=== PATIENT | female | born 1960 | race Caucasian/White ===

== ENCOUNTER 2017-03-30 12:38 | Emergency (ER) | payer OTHER ==
[~2017-03-30] VITALS: Ht 167.6 cm; Wt 79.4 kg
--- NOTE | 2017-03-30 13:19 | ED Upper Extremity ---
General Chief Complaint: Trauma-Non Activation Stated Complaint: FALL/RIGHT WRIST INJ Nursing Triage Note: pt states she was walking around her car in her work parking lot and fell on a ramp and hit her right wrist. no LOC stated. pts arm and wrist is red no lacerations or bruising at this time. pt states no other injuries or complains at this time. Nursing Sepsis Screen: No Definite Risk Source: patient Exam Limitations: no limitations History of Present Illness Time seen by provider: 13:18 Initial Comments To ER with a complaint of pain to the right wrist. This began this morning when she was walking around her car and tripped and fell attending to catch herself on an outstretched right arm. There is deformity to the distal right forearm. No other injuries and she did not hit her head. Onset: just prior to arrival Severity: moderate Pain/Injury Location: right forearm, right wrist Method of Injury: fell Modifying Factors: Worse With Movement Allergies and Home Medications Allergies Coded Allergies: No Known Drug Allergies (Unverified , 03/30/17) Home Medications Hydrocodone/Acetaminophen 1 Each Tablet, 1 EACH PO Q4H PRN for PAIN-MODERATE TO SEVERE, #20 Prescribed by: LAURA BEACH on 03/30/17 4018 Constitutional: see HPI EENTM: see HPI Respiratory: no symptoms reported Cardiovascular: no symptoms reported Genitourinary: no symptoms reported Musculoskeletal: see HPI Skin: no symptoms reported Psychiatric/Neurological: No Symptoms Reported Past Nmkkver-Fimggb-Mthmpm Hx Patient Social History Alcohol Use: Denies Use Recreational Drug Use: No Smoking Status: Never a Smoker 2nd Hand Smoke Exposure: No Recent Foreign Travel: No Contact w/Someone Who Travel: No Recent Infectious Disease Expo: No Seasonal Allergies Seasonal Allergies: Yes Physical Exam Vital Signs Vital Sign - Last 12Hours 03/30/17 12:51 Temp 98.3 Pulse 65 Resp 20 B/P (MAP) 128/70 Pulse Ox 96 O2 Delivery Room Air Capillary Refill : Less Than 3 Seconds General Appearance: WD/WN, no apparent distress HEENT: PERRL/EOMI, normal ENT inspection Neck: non-tender, full range of motion Respiratory: no respiratory distress, no accessory muscle use Gastrointestinal: normal bowel sounds, non tender, soft Shoulder: normal inspection, non-tender Elbow/Forearm: normal inspection, non-tender, Right Wrist: Yes deformity, Yes pain, Yes soft tissue tenderness, Yes swelling Hand: normal inspection, non-tender, Right Neurologic/Psychiatric: alert, normal mood/affect, oriented x 3 Skin: normal color, warm/dry Comments Hematoma block to the dorsal and volar side of the right wrist using a total of 8 mL of 2 percent lidocaine. After waiting 10 minutes reduction was attempted by hyperextending the wrist in an attempt to re-create injury, distal traction and volar pressure applied dorsally. We did make some progress, sure if it was sufficient. We will obtain an x-ray. Progress/Results/Core Measures Results/Orders My Orders Orders - LAURA BEACH APRN Forearm, Right, 2 Views (03/30/17 13:17) Hydrocodone/Apap 5/325 Tablet (Lortab 5 (03/30/17 13:30) Sling (03/30/17 13:17) Wrist, Right, 3 Views Or More (03/30/17 13:41) Lidocaine 2% Injection 20 Ml (Xylocaine (03/30/17 14:00) Wrist, Right, 3 Views Or More (03/30/17 14:18) Medications Given in ED Current Medications Medications Dose Ordered Sig/Frannie Route Start Time Stop Time Status Last Admin Dose Admin Acetaminophen/ Hydrocodone Bitart 1 tab ONCE ONCE PO 03/30/17 13:30 03/30/17 13:31 DC 03/30/17 13:47 1 TAB Lidocaine HCl 20 ml ONCE ONCE INJ 03/30/17 14:00 03/30/17 14:01 DC 03/30/17 14:11 20 ML Vital Signs/I&O Vital Sign - Last 12Hours 03/30/17 12:51 Temp 98.3 Pulse 65 Resp 20 B/P (MAP) 128/70 Pulse Ox 96 O2 Delivery Room Air Blood Pressure Mean: 89 Diagnostic Imaging Diagonstic Imaging: Xray Comments NAME: CORRIE KAHN [facility] REC#: [id number] PT STATUS: REG ER : 1960 PHYSICIAN: LAURA BEACH APRN ADMIT DATE: 03/30/17/ER Draft Date of Exam:03/30/17 FOREARM, RIGHT, 2 VIEWS INDICATION: Right wrist pain after fall. DISCUSSION: Two views of the right forearm were obtained, no comparison. Acute impacted fractures of the distal right radius and ulna with likely intra-articular extension. The distal fragments are displaced posteriorly. Please see dedicated wrist films for further detail. No other osseous abnormality identified. Limited views of the right elbow are unremarkable. No radiopaque foreign body. IMPRESSION: 1. Acute impacted angulated fractures of the distal right radius and ulna. Dictated on workstation # [id number] Dict: 03/30/17 1353 Trans: 03/30/17 1355 [facility] [id number] Interpreted by: HILDA BECKER MD Electronically signed by: Departure Communication Progress Notes 1456- I sent the images to Dr. Prather who is on-call for orthopedics. He will see the patient tomorrow morning at 1030 a.m. Recommend splinting in this position in the interim. 1505-Pt placed in sugar tong splint. Impression Impression: Primary Impression: Wrist fracture Disposition: 01 HOME, SELF-CARE Condition: Stable Departure-Patient Inst. Decision time for Depature: 14:56 Referrals: NO,LOCAL PHYSICIAN (PCP) Primary Care Physician MEENAKSHI PRATHER MD Patient Instructions: Wrist Fracture (DC) Add. Discharge Instructions: 1. Do not eat breakfast in the morning 2. Your scheduled to see Dr. Prather tomorrow at 1030 a.m. at his [place] office 2. Keep the arm elevated, keep the splint on at all times, ice pack for one hour every 2 hours and pain medication as directed All discharge instructions reviewed with patient and/or family. Voiced understanding. Scripts Hydrocodone/Acetaminophen (Yaphank 5-325 Tablet) 1 Each Tablet 1 EACH PO Q4H Y for PAIN-MODERATE TO SEVERE, #20 TAB Prov: LAURA BEACH PAINT SPECIALIST 03/30/17 LAURA BEACH APRN March 30, 2017 13:18
[2017-03-30] MEDS ORDERED: HYDROcodone/APAP 5 MG/325 MG (LORTAB) TAB PO ONE (13:30)
--- NOTE | 2017-03-30 13:56 | Diagnostic Imaging Report ---
INDICATION: Right wrist pain after fall. DISCUSSION: Two views of the right forearm were obtained, no comparison. Acute impacted fractures of the distal right radius and ulna with likely intra-articular extension. The distal fragments are displaced posteriorly. Please see dedicated wrist films for further detail. No other osseous abnormality identified. Limited views of the right elbow are unremarkable. No radiopaque foreign body. IMPRESSION: 1. Acute impacted angulated fractures of the distal right radius and ulna. Dictated by: Dictated on workstation # [id number]
--- NOTE | 2017-03-30 13:57 | Diagnostic Imaging Report ---
3 views of the right chest. INDICATION: Fall. FINDINGS: There is an angulated fracture projecting dorsally at the level of the distal metaphysis of the radius. There is also a minimally displaced fracture of the ulna. There is suggestion of intra-articular extension of the fracture line with impaction along the dorsal aspect. There is no subluxation or dislocation suggested at the joint itself. No radiopaque foreign body. IMPRESSION: Impacted angulated fractures of the distal radius and ulna with suggestion of intra-articular extension of the fracture line. Dictated by: Dictated on workstation # [id number]
[2017-03-30] MEDS ORDERED: LIDOCAINE 2% 20 ML (XYLOCAINE) VIAL INJ ONE (14:00)
--- NOTE | 2017-03-30 14:42 | Diagnostic Imaging Report ---
INDICATION: Followup right wrist fracture. DISCUSSION: Three views of the right wrist were obtained following reduction with comparison from earlier today. Mildly impacted comminuted fractures of the distal right radius and ulna are again noted. Posterior angulation of the distal radial fragments of at least 45 degrees has not significantly changed from the previous exam. Intra-articular extension of the fracture line is noted. No other fracture identified. Soft tissue swelling is present. IMPRESSION: 1. Dorsal angulation of the comminuted intra-articular impacted fracture involving the distal right radius shows no significant interval change in overall angulation. Comminuted fracture of the distal right ulna is also stable. Dictated by: Dictated on workstation # [id number]
[2017-03-30] MEDS ORDERED: HYDR-757 PO (14:58)
[2017-03-30 15:23] VITALS: BP 145/83
== END 2017-03-30 15:23 | disposition home or self-care (01) ==
LOC: ER 12:42
DX: S52.251A Displaced comminuted fracture of shaft of ulna, right arm, initial encounter for closed fracture (principal); S52.351A Displaced comminuted fracture of shaft of radius, right arm, initial encounter for closed fracture; W01.0XXA Fall on same level from slipping, tripping and stumbling without subsequent striking against object, initial encounter; Y92.481 Parking lot as the place of occurrence of the external cause; Y99.8 Other external cause status
CPT/HCPCS: 29125; 73090; 73110

== ENCOUNTER → 2017-06-25 | Outpatient (CLI) | payer BC ==
[~2017-06-25] MED LIST: HYDR-757 PO
--- NOTE | 2017-06-25 11:34 | Diagnostic Imaging Report ---
PROCEDURE: CT right lower extremity without contrast. TECHNIQUE: Axially acquired CT was obtained through the right lower extremity without intravenous contrast. Coronal and sagittal reformations were also performed. INDICATION: Knee pain after injury approximately one week ago. COMPARISON: None available. FINDINGS: There is a mildly impacted fracture of the lateral tibial plateau with approximately 2 mm articular surface depression. This is located along the periphery of the lateral tibial plateau. No fracture of the medial tibial plateau or within the tibial eminence. Distal femur is intact. There is a small knee joint effusion without significant lipohemarthrosis. No mineralized intra-articular bodies. The ACL and PCL appear intact. IMPRESSION: 1. There is a focal mild impaction fracture of the peripheral aspect of the lateral tibial plateau which is likely acute to subacute in nature per patient's history. There is less than 2 mm articular surface step-off/depression. Clinical correlation for lateral joint line pain is advised. 2. Small knee joint effusion. If there is concern for internal derangement, consider MRI for further evaluation. Dictated by: Dictated on workstation # [id number]
== END ==
LOC: RAD 09:14
DX: S82.141A Displaced bicondylar fracture of right tibia, initial encounter for closed fracture (principal); X58.XXXA Exposure to other specified factors, initial encounter; Y99.8 Other external cause status
CPT/HCPCS: 73700

== ENCOUNTER → 2019-10-02 | Outpatient (REF) ==
[~2019-10-02] MED LIST changes: +HYDR-4226 PO; -HYDR-757 PO
--- NOTE | 2019-10-02 10:19 | Diagnostic Imaging Report ---
INDICATION: Injury to left knee. AP, oblique, and lateral views of the left knee are obtained. No fracture or acute bony abnormality is seen. Joint spaces appear preserved. IMPRESSION: Negative left knee. Dictated by: Dictated on workstation # [id number]
== END ==
LOC: EDBD → OCC 09:57 → MERGE 09:57
PROVIDERS: ATTEND Family Medicine
DX: S89.92XA Unspecified injury of left lower leg, initial encounter (principal)
CPT/HCPCS: 73562

== ENCOUNTER 2021-05-30 10:34 | Inpatient (IN) | payer BC ==
[~2021-05-30] VITALS: Ht 168 cm; Wt 83.5 kg
--- NOTE | 2021-05-30 11:43 | ED Cough/URI ---
General Chief Complaint: Cough/Cold/Flu Symptoms Stated Complaint: SOB,COUGH,CONGESTION Nursing Triage Note: PT STATES COUGHING FOR OVER A WEEK. FEVER EARLY ON BUT NONE FOR THE LAST COUPLE DAYS. Source: patient Exam Limitations: no limitations History of Present Illness Date Seen by Provider: May 30, 2021 Time Seen by Provider: 11:20 Initial Comments Shortness of breath and coughing x1 week. Non-smoker, no comorbidities that she is aware of, no diabetes no pre-existing lung disease. No autoimmune diseases. Unvaccinated against Covid. SpO2 87% on room air on arrival. Timing/Duration: getting worse Severity/Quality: productive cough Prior Episodes/Possible Cause: no prior episodes Associated Symptoms: cough, fever/chills, muscle aches, shortness of breath Allergies and Home Medications Allergies Coded Allergies: No Known Drug Allergies (Unverified , 03/30/17) Home Medications Hydrocodone/Acetaminophen 1 Each Tablet, 1 EACH PO Q4H PRN for PAIN-MODERATE TO SEVERE Prescribed by: LAURA BEACH on 03/30/17 1716 Patient Home Medication List Home Medication List Reviewed: Yes Review of Systems Review of Systems Constitutional: see HPI EENTM: see HPI Respiratory: no symptoms reported Cardiovascular: no symptoms reported Gastrointestinal: nausea Genitourinary: no symptoms reported Musculoskeletal: no symptoms reported Skin: no symptoms reported Psychiatric/Neurological: No Symptoms Reported Hematologic/Lymphatic: No Symptoms Reported Immunological/Allergic: no symptoms reported Past Gzpxtgz-Geifqy-Zakohj Hx Seasonal Allergies Seasonal Allergies: Yes Past Medical History Surgeries: No Respiratory: No Cardiac: No Neurological: No Genitourinary: No Gastrointestinal: No Musculoskeletal: No Endocrine: No HEENT: No Cancer: No Psychosocial: No Integumentary: No Blood Disorders: No Physical Exam Vital Signs - First Documented 05/30/21 11:27 Temp 37.6 Pulse 85 Resp 20 B/P (MAP) 144/81 (102) Pulse Ox 94 O2 Delivery Nasal Cannula O2 Flow Rate 2.00 Capillary Refill : Less Than 3 Seconds Height: 5'6.00" Weight: 175lbs. oz. 79.153686on; 29.00 BMI Method:Stated General Appearance: WD/WN, no apparent distress, other (No distress no accessory muscle use. States she is a little nauseated. SPO2 87% on room air up to 97% on 3 L of oxygen by nasal cannula.) Eyes: Bilateral Eye Normal Inspection, Bilateral Eye PERRL, Bilateral Eye EOMI Neck: non-tender, full range of motion Respiratory: normal breath sounds, no respiratory distress, no accessory muscle use Cardiovascular: regular rate, rhythm, no murmur Gastrointestinal: normal bowel sounds, non tender, soft Neurologic/Psychiatric: alert, normal mood/affect, oriented x 3 Skin: normal color, warm/dry Progress/Results/Core Measures Suspected Sepsis SIRS Temperature: Pulse: 85 Respiratory Rate: 20 Laboratory Tests 05/30/21 11:40: White Blood Count 6.1 Blood Pressure 144 /81 Mean: 102 Laboratory Tests 05/30/21 11:40: Creatinine 0.75, Platelet Count 149, Total Bilirubin 0.6 Results/Orders Lab Results Laboratory Tests Test 05/30/21 10:58 05/30/21 11:40 Range/Units Influenza Type A (RT-PCR) Not Detected Not Detecte Influenza Type B (RT-PCR) Not Detected Not Detecte SARS-CoV-2 RNA (RT-PCR) Detected H Not Detecte White Blood Count 6.1 4.3-11.0 10^3/uL Red Blood Count 4.28 3.80-5.11 10^6/uL Hemoglobin 13.3 11.5-16.0 g/dL Hematocrit 40 35-52 % Mean Corpuscular Volume 92 80-99 fL Mean Corpuscular Hemoglobin 31 25-34 pg Mean Corpuscular Hemoglobin Concent 34 32-36 g/dL Red Cell Distribution Width 12.6 10.0-14.5 % Platelet Count 149 130-400 10^3/uL Mean Platelet Volume 11.5 9.0-12.2 fL Immature Granulocyte % (Auto) 1 % Neutrophils (%) (Auto) 79 H 42-75 % Lymphocytes (%) (Auto) 14 12-44 % Monocytes (%) (Auto) 6 0-12 % Eosinophils (%) (Auto) 0 0-10 % Basophils (%) (Auto) 0 0-10 % Neutrophils # (Auto) 4.8 1.8-7.8 10^3/uL Lymphocytes # (Auto) 0.9 L 1.0-4.0 10^3/uL Monocytes # (Auto) 0.4 0.0-1.0 10^3/uL Eosinophils # (Auto) 0.0 0.0-0.3 10^3/uL Basophils # (Auto) 0.0 0.0-0.1 10^3/uL Immature Granulocyte # (Auto) 0.0 0.0-0.1 10^3/uL D-Dimer 1.48 H 0.00-0.49 UG/ML Sodium Level 134 L 135-145 MMOL/L Potassium Level 3.5 L 3.6-5.0 MMOL/L Chloride Level 97 L 98-107 MMOL/L Carbon Dioxide Level 23 21-32 MMOL/L Anion Gap 14 5-14 MMOL/L Blood Urea Nitrogen 12 7-18 MG/DL Creatinine 0.75 0.60-1.30 MG/DL Estimat Glomerular Filtration Rate > 60 BUN/Creatinine Ratio 16 Glucose Level 126 H 70-105 MG/DL Calcium Level 8.3 L 8.5-10.1 MG/DL Corrected Calcium 8.7 8.5-10.1 MG/DL Total Bilirubin 0.6 0.1-1.0 MG/DL Aspartate Amino Transf (AST/SGOT) 54 H 5-34 U/L Alanine Aminotransferase (ALT/SGPT) 32 0-55 U/L Alkaline Phosphatase 59 40-136 U/L C-Reactive Protein High Sensitivity 10.43 H 0.00-0.50 MG/DL B-Type Natriuretic Peptide 61.9 <100.0 PG/ML Total Protein 6.8 6.4-8.2 GM/DL Albumin 3.5 3.2-4.5 GM/DL Procalcitonin 0.06 <0.10 NG/ML My Orders Orders - LAURA BEACH [employer]GE [employer] MACHINE TENDER Cbc With Automated Diff (05/30/21 11:39) Comprehensive Metabolic Panel (05/30/21 11:39) Hs C Reactive Protein (05/30/21 11:39) Fibrin Degradation Products (05/30/21 11:39) Ed Iv/Invasive Line Start (05/30/21 11:39) Chest 1 View, Ap/Pa Only (05/30/21 11:39) BNP (05/30/21 11:39) Procalcitonin (Pct) (05/30/21 11:39) Arterial Blood Gas (05/30/21 12:27) Ct Angio Chest W (05/30/21 12:27) Vital Signs/I&O 05/30/21 11:27 Temp 37.6 Pulse 85 Resp 20 B/P (MAP) 144/81 (102) Pulse Ox 94 O2 Delivery Nasal Cannula O2 Flow Rate 2.00 Capillary Refill : Less Than 3 Seconds Blood Pressure Mean: 102 Diagnostic Imaging Diagonstic Imaging: Xray Plain Films/CT/US/NM/MRI: chest Comments NAME: CORRIE KAHN [facility] REC#: [id number] PT STATUS: REG ER : 1960 PHYSICIAN: LAURA BEACH APRN ADMIT DATE: 05/30/21/ER Draft Date of Exam:05/30/21 CHEST 1 VIEW, AP/PA ONLY Clinical Indications: Patient with shortness of air and cough. Exam: Portable chest x-ray upright view. Comparisons: None. Findings: Lungs/pleura: There are small to moderate amounts of patchy infiltrates throughout both lungs with both lung bases affected the most. There is slight blunting of the left costophrenic angle and a small left pleural effusion may be present. There is no pneumothorax. Mediastinum: Unremarkable. Pulmonary vasculature: Unremarkable. Heart: There is mild cardiomegaly. Bones/extrathoracic soft tissue: Unremarkable. Impression: 1: There are diffuse bilateral lung infiltrates with both lung base affected the most concerning for pneumonia. 2: Possible small left pleural effusion. 3: Mild cardiomegaly with no significant pulmonary vascular congestion. Dictated on workstation # [id number] Dict: 05/30/21 1158 Trans: 05/30/21 1201 [facility] [id number] Interpreted by: JESSIKA REAGAN MD Electronically signed by: Departure Impression Primary Impression: COVID-19 Additional Impression: Hypoxia Disposition: ADMITTED INPATIENT Condition: Stable Departure-Patient Inst. Referrals: NO,LOCAL PHYSICIAN (PCP/Family) Primary Care Physician LAURA BEACH APRN May 30, 2021 11:43
[2021-05-30 11:52] LABS: BASOPHILS % (AUTO) 0 % (0-10); EOSINOPHILS % (AUTO) 0 % (0-10); HEMATOCRIT 40 % (35-52); HEMOGLOBIN 13.3 g/dL (11.5-16.0); LYMPHOCYTES # (AUTO) 0.9 10^3/uL (1.0-4.0); LYMPHOCYTES % (AUTO) 14 % (12-44); MEAN CORPUSCULAR HEMOGLOBIN 31 pg (25-34); MEAN CORPUSCULAR HGB CONC 34 g/dL (32-36); MEAN CORPUSCULAR VOLUME 92 fL (80-99); MEAN PLATELET VOLUME 11.5 fL (9.0-12.2); MONOCYTES # (AUTO) 0.4 10^3/uL (0.0-1.0); MONOCYTES % (AUTO) 6 % (0-12); NEUTROPHILS # (AUTO) 4.8 10^3/uL (1.8-7.8); NEUTROPHILS % (AUTO) 79 % (42-75); PLATELET COUNT 149 10^3/uL (130-400); WHITE BLOOD COUNT 6.1 10^3/uL (4.3-11.0)
--- NOTE | 2021-05-30 12:01 | Diagnostic Imaging Report ---
Clinical Indications: Patient with shortness of air and cough. Exam: Portable chest x-ray upright view. Comparisons: None. Findings: Lungs/pleura: There are small to moderate amounts of patchy infiltrates throughout both lungs with both lung bases affected the most. There is slight blunting of the left costophrenic angle and a small left pleural effusion may be present. There is no pneumothorax. Mediastinum: Unremarkable. Pulmonary vasculature: Unremarkable. Heart: There is mild cardiomegaly. Bones/extrathoracic soft tissue: Unremarkable. Impression: 1: There are diffuse bilateral lung infiltrates with both lung base affected the most concerning for pneumonia. 2: Possible small left pleural effusion. 3: Mild cardiomegaly with no significant pulmonary vascular congestion. Dictated by: Dictated on workstation # [id number]
[2021-05-30 12:06] LABS: ALBUMIN 3.5 GM/DL (3.2-4.5); CHLORIDE 97 MMOL/L (98-107); POTASSIUM 3.5 MMOL/L (3.6-5.0); SODIUM 134 MMOL/L (135-145)
[2021-05-30 12:08] LABS: CALCIUM 8.3 MG/DL (8.5-10.1)
[2021-05-30 12:09] LABS: GLUCOSE 126 MG/DL (70-105); TOTAL PROTEIN 6.8 GM/DL (6.4-8.2)
[2021-05-30 12:10] LABS: CARBON DIOXIDE 23 MMOL/L (21-32)
[2021-05-30 12:11] LABS: BILIRUBIN,TOTAL 0.6 MG/DL (0.1-1.0)
[2021-05-30 12:12] LABS: ALKALINE PHOSPHATASE 59 U/L (40-136)
[2021-05-30 12:13] LABS: CREATININE SERUM 0.75 MG/DL (0.60-1.30); GFR ESTIMATED > 60
[2021-05-30 12:14] LABS: BUN/CREATININE RATIO 16
[2021-05-30 12:16] LABS: ALANINE AMINOTRANSFERASE 32 U/L (0-55)
[2021-05-30] MEDS ORDERED: ONDANSETRON 4 MG/2 ML (SDV) Z0FRAN IVP ONE (13:00)
[2021-05-30 13:28] LABS: ABG BASE EXCESS 2.1 MMOL/L (-2.5-2.5); ABG OXYGEN SATURATION 92 % (94-100); ABG PCO2 38 MMHG (35-45); ABG PH 7.45 (7.37-7.43); ABG PO2 63 MMHG (79-93); ABG TCO2 26.9 MMOL/L (21.0-31.0)
[2021-05-30 13:33] LABS: ALLENS TEST YES-POS; INSPIRED O2 2 L; PATIENT TEMP 37.6; VENTILATOR NO
[2021-05-30 15:27] VITALS: BP 144/81
[2021-05-30] MEDS ORDERED: IBUPROFEN 600 MG (MOTRIN) TAB PO PRN (15:30)
[2021-05-30] MEDS ORDERED: CATHETER FLUSH 10 ML SYR IV PRN (15:30)
[2021-05-30 15:36] VITALS: BP 133/78
[2021-05-30] MEDS ORDERED: REMDESIVIR 200 MG/NS 250 ML IVPB IV NR ×2 (16:00)
--- NOTE | 2021-05-30 16:40 | History & Physical-Hospitalist ---
History of Present Illness HPI/Chief Complaint Pt is a 61yoCF with no known PMH who presented to the ER due to cough and shortness of breath. She states her symptoms started roughly 1 week ago and she thought it was just a sinus infection. As it progressed she became very tired and thought it settled in her chest. She was tested for COVID here and was positive. She was hypoxic requiring 4lpm NC to maintain saturations. She denies any loss of taste or smell. She did have diarrhea but that has resolved. She has nausea and poor oral intake. She has not been vaccinated. Source: patient Date Seen 05/30/21 Time Seen by a Provider: 16:35 Attending Physician Jill Valdes MD PCP No,Local Physician Referring Physician Date of Admission May 30, 2021 at 13:07 Home Medications & Allergies Home Medications Reviewed patient Home Medication Reconciliation performed by pharmacy medication reconciliations printer technician and/or nursing. Patients Allergies have been reviewed. Allergies Allergies Coded Allergies No Known Drug Allergies (Unverified03/30/17) Past Sjmdstf-Vzotiz-Qpvmij Hx Patient Social History Tobacco Use?: No Smoking Status: Never a Smoker Smokeless Tobacco Frequency: Never a User Use of E-Cig and/or Vaping dev: No Substance use?: No Alcohol Use?: No Pt feels they are or have been: No Immunizations Up To Date Tetanus Booster (TDap): More Than 5 Years Hepatitis A: No Hepatitis B: Yes Seasonal Allergies Seasonal Allergies: Yes Current Status status: No Advance Directives: No Communicates: Verbally Primary Language: Georgian Preferred Spoken Language: Georgian Is interpretation needed?: No Sensory deficits: Vision impairment Implanted or Applied Medical D: Orthopedic hardware Past Medical History Blood Disorders: No Family Medical History Reviewed Nursing Family Hx No Pertinent Family Hx Review of Systems Constitutional: No chills, No fever; malaise EENTM: nose congestion Respiratory: cough; No dyspnea on exertion; short of breath Cardiovascular: No chest pain, No edema, No palpitations Gastrointestinal: No abdominal pain, No constipation; diarrhea (now resolved), nausea; No vomiting Genitourinary: No dysuria, No frequency Musculoskeletal: no symptoms reported Skin: no symptoms reported Psychiatric/Neurological: No Symptoms Reported Physical Exam Physical Exam Vital Signs Vital Signs - First Documented 05/30/21 11:27 Temp 37.6 Pulse 85 Resp 20 B/P (MAP) 144/81 (102) Pulse Ox 94 O2 Delivery Nasal Cannula O2 Flow Rate 2.00 Capillary Refill : Less Than 3 Seconds Height, Weight, BMI Height: 5'6.00" Weight: 175lbs. oz. 79.916010rd; 30.71 BMI Method:Stated General Appearance: No Apparent Distress, WD/WN HEENT: PERRL/EOMI, Moist Mucous Membranes; No Scleral Icterus (L), No Scleral Icterus (R) Neck: Normal Inspection, Supple Respiratory: Decreased Breath Sounds, Other (on 4lpm NC) Cardiovascular: Regular Rate, Rhythm, No Murmur Gastrointestinal: Normal Bowel Sounds, Non Tender, Soft Extremity: No Calf Tenderness, No Pedal Edema Neurologic/Psychiatric: Alert, Oriented x3, Normal Mood/Affect Skin: Normal Color, Warm/Dry Results Results/Procedures Labs Laboratory Tests 05/30/21 11:40 Patient resulted labs reviewed. Imaging: Reviewed Imaging Report Imaging [facility] [place] NAME: CORRIE KAHN [facility] REC#: [id number] PT STATUS: REG ER : 1960 PHYSICIAN: LAURA BEACH TRANSPORTATION ANALYST ADMIT DATE: 05/30/21/ER Draft Date of Exam:05/30/21 CHEST 1 VIEW, AP/PA ONLY Clinical Indications: Patient with shortness of air and cough. Exam: Portable chest x-ray upright view. Comparisons: None. Findings: Lungs/pleura: There are small to moderate amounts of patchy infiltrates throughout both lungs with both lung bases affected the most. There is slight blunting of the left costophrenic angle and a small left pleural effusion may be present. There is no pneumothorax. Mediastinum: Unremarkable. Pulmonary vasculature: Unremarkable. Heart: There is mild cardiomegaly. Bones/extrathoracic soft tissue: Unremarkable. Impression: 1: There are diffuse bilateral lung infiltrates with both lung base affected the most concerning for pneumonia. 2: Possible small left pleural effusion. 3: Mild cardiomegaly with no significant pulmonary vascular congestion. Dictated on workstation # [id number] Dict: 05/30/21 1158 Trans: 05/30/21 1201 [facility] [id number] Interpreted by: JESSIKA REAGAN MD Electronically signed by: Assessment/Plan Admission Diagnosis Acute hypoxic respiratory failure due to COVID19 Admission Status: Inpatient Order (span 2 midnights) Reason for Inpatient Admission: see below Assessment and Plan Acute hypoxic respiratory failure due to COVID19 Around day 7 of illness Requiring 4lpm NC Continue on steroids Zofran prn nausea, antitussives prn Remdesivir ordered Convalescent plasma ordered, patient consented IS, MAT protocol DVT ppx; Lovenox Diagnosis/Problems Diagnosis/Problems (1) Acute respiratory failure (2) COVID-19 Status: Acute JILL VALDES MD May 30, 2021 16:40
[2021-05-30] MEDS ORDERED: NS IV 500 ML 500 ML IV SCH (16:45)
[2021-05-30] MEDS: ENOXAPARIN 40 MG/0.4 ML (LOVENOX) SYR SQ SCH (17:40)
[2021-05-30] MEDS: NS IV 1000 ML 1,000 ML IV SCH (17:40)
[2021-05-30] MEDS ORDERED: IOHEXOL 350 MG/ML 100 ML (OMNIPAQUE 350) VIAL IV ONE (19:00)
[2021-05-30] MEDS ORDERED: HOLD METFORMIN - RECEIVED CONTRAST 20 ML VIAL IV SCH (19:00)
[2021-05-30] MEDS ORDERED: NS 100 ML (IVPB) BAG IV ONE (19:00)
--- NOTE | 2021-05-30 19:19 | Diagnostic Imaging Report ---
PROCEDURE: CT angiography of the chest with contrast. TECHNIQUE: Multiple contiguous axial images were obtained through the chest after uneventful bolus administration of intravenous contrast. 3D reconstructed CTA MIP acquisitions were also performed. Auto Exposure Controls were utilized during the CT exam to meet ALARA standards for radiation dose reduction. DATE: May 30, 2021. COMPARISON: Chest radiograph May 30, 2021. INDICATION: 61-year-old female, history of Covid 19 infection. Cough and shortness of breath. FINDINGS: There is multifocal bilateral lung consolidation. There is no identified pulmonary nodule. There is no identified lung mass. The central airways are patent. There is no pneumothorax. There is no pleural effusion. There is no identified pulmonary embolus. The main pulmonary artery is normal in caliber. The heart is not grossly enlarged. There is no pericardial effusion. There is no identified abnormally enlarged mediastinal, hilar or axillary lymph node meeting CT size criteria for adenopathy. There is a subcutaneous nodule extending to the skin surface just to the left of midline at the level of the left upper back measuring 1.7 cm in size on axial image 42. This may relate to a sebaceous cyst or epidermal inclusion cyst although it is not specific on imaging and correlation with dermatologic exam is needed. There is diffuse fatty infiltration of the liver with focal fatty sparing adjacent to the gallbladder fossa. There does appear to be a small duodenal diverticulum at the level of the proximal third portion of duodenum. There is no identified acute bony abnormality. There are multilevel degenerative changes of the spine. IMPRESSION: CT chest: 1. No identified pulmonary embolus. 2. Multifocal bilateral lung consolidation which would be consistent although not entirely specific with the provided history of Covid 19 infection and multifocal pneumonia/pneumonitis. 3. Diffuse fatty infiltration of the liver. 4. Subcutaneous lesion along the skin surface just to the left of midline at the level of the upper thoracic spine which may relate to a sebaceous cyst or epidermal inclusion cyst although this is not specific on imaging and correlation with dermatologic exam is needed. Dictated by: Dictated on workstation # [id number]
[2021-05-30 19:21] VITALS: BP 130/69
[2021-05-30] MEDS: RT-ALBUTEROL INHALER HFA (VENTOLIN HFA) 18 GM IH SCH (20:53)
[2021-05-30] MEDS: CATHETER FLUSH 10 ML SYR IV SCH (22:29)
[2021-05-30 23:30] VITALS: BP 115/69
[2021-05-31] VITALS (17 sets, daily range): BP systolic 117–144; BP diastolic 60–75
[2021-05-31] MEDS: RT-ALBUTEROL INHALER HFA (VENTOLIN HFA) 18 GM IH SCH ×5 (02:50→22:28)
[2021-05-31] MEDS: NS IV 1000 ML 1,000 ML IV SCH ×2 (04:32→16:55)
[2021-05-31 05:25] LABS: BASOPHILS % (AUTO) 0 % (0-10); EOSINOPHILS % (AUTO) 0 % (0-10); HEMATOCRIT 35 % (35-52); HEMOGLOBIN 11.7 g/dL (11.5-16.0); LYMPHOCYTES % (AUTO) 20 % (12-44); MEAN CORPUSCULAR HEMOGLOBIN 31 pg (25-34); MEAN CORPUSCULAR HGB CONC 33 g/dL (32-36); MEAN CORPUSCULAR VOLUME 93 fL (80-99); MEAN PLATELET VOLUME 11.1 fL (9.0-12.2); MONOCYTES # (AUTO) 0.5 10^3/uL (0.0-1.0); MONOCYTES % (AUTO) 9 % (0-12); NEUTROPHILS # (AUTO) 3.6 10^3/uL (1.8-7.8); NEUTROPHILS % (AUTO) 71 % (42-75); PLATELET COUNT 160 10^3/uL (130-400); WHITE BLOOD COUNT 5.1 10^3/uL (4.3-11.0)
[2021-05-31 05:37] LABS: CHLORIDE 103 MMOL/L (98-107); POTASSIUM 3.3 MMOL/L (3.6-5.0); SODIUM 139 MMOL/L (135-145)
[2021-05-31 05:38] LABS: CALCIUM 7.8 MG/DL (8.5-10.1)
[2021-05-31 05:39] LABS: GLUCOSE 119 MG/DL (70-105)
[2021-05-31 05:40] LABS: CARBON DIOXIDE 24 MMOL/L (21-32)
[2021-05-31] MEDS: CATHETER FLUSH 10 ML SYR IV SCH ×3 (05:41→20:41)
[2021-05-31 05:43] LABS: BUN/CREATININE RATIO 15; CREATININE SERUM 0.73 MG/DL (0.60-1.30); GFR ESTIMATED > 60
[2021-05-31 05:55] LABS: SMEAR SCAN COMMENT YES
[2021-05-31] MEDS: dexAMETHasone 6 MG TAB (DECADRON) PO SCH (06:04)
[2021-05-31] MEDS: PANTOPRAZOLE 40 MG (PROTONIX) TAB PO SCH (09:40)
--- NOTE | 2021-05-31 10:28 | Tele-ICU Consult ---
History of Present Illness History of Present Illness Date Seen by Provider: May 31, 2021 Time Seen by Provider: 10:22 Date of Admission History of Present Illness 61 y/o female admitted with Covid PNA. Now transferred to ICU for hypoxemia Received Remdesivir and started on decadron 6mg and convalescent plasma ordered Labs: wbc: 5.1 hgb: 11.7 plt: 160 K: 3.3 IMP: Covid PNA with hypoxemia Watch for developing resp failure Allergies and Home Medications Allergies Coded Allergies: No Known Drug Allergies (Unverified , 03/30/17) Home Medications No Active Prescriptions or Reported Meds Past Medical/Social/Family Hx Patient Social History Tobacco Use?: No Smoking Status: Never a Smoker Smokeless Tobacco Frequency: Never a User Use of E-Cig and/or Vaping dev: No Substance use?: No Alcohol Use?: No Pt stated abuse/neglect: No Immunizations Up To Date Influenza Vaccine Up-to-Date: No; Not Current Tetanus Booster (TDap): More Than 5 Years Hepatitis A: No Hepatitis B: Yes TB Skin Test: None Current Status status: No Advance Directives: No Communicates: Verbally Primary Language: Greenlandic Preferred Spoken Language: Greenlandic Is interpretation needed?: No Sensory deficits: Vision impairment Implanted or Applied Medical D: Orthopedic hardware Review of Systems Constitutional: No no symptoms reported, No see HPI, No chills, No diaphoresis, No dizziness, No fever, No malaise, No weakness, No weight gain, No weight loss, No other Sepsis Event Evaluation Height, Weight, BMI Height: 5'6.00" Weight: 175lbs. oz. 79.824191fn; 30.71 BMI Method:Stated Exam Exam Patient acknowledged, consented, and participated in this virtual visit which was conducted using real time audio/video Vital Signs Date Time Temp Pulse Resp B/P (MAP) Pulse Ox O2 Delivery O2 Flow Rate FiO2 05/31/21 07:59 Vapotherm 25.00 85 05/31/21 07:37 93 Vapotherm 25.00 85 05/31/21 03:40 36.6 67 18 117/68 (84) 96 Nasal Cannula 9.00 05/31/21 02:50 91 Nasal Cannula 9.00 05/30/21 23:30 37.3 73 16 115/69 (84) 90 Nasal Cannula 9.00 05/30/21 22:24 92 9.00 05/30/21 20:53 89 Nasal Cannula 5.00 05/30/21 19:21 37.2 69 20 130/69 (89) 93 Nasal Cannula 3.00 05/30/21 16:49 Nasal Cannula 4.00 05/30/21 15:36 37.4 82 20 133/78 (96) 97 Nasal Cannula 4.00 05/30/21 15:27 37.6 85 94 05/30/21 14:58 Nasal Cannula 2.00 05/30/21 13:15 37.6 76 20 133/72 (102) 94 Nasal Cannula 2.00 05/30/21 11:30 Nasal Cannula 2.00 2.00 05/30/21 11:27 37.6 85 20 144/81 (102) 94 Nasal Cannula 2.00 I & O 05/31/21 07:00 Intake Total 1750 ml Balance 1750 ml Height & Weight Height: 5'6.00" Weight: 175lbs. oz. 79.251811qz; 30.71 BMI Method:Stated General Appearance: No Apparent Distress, WD/WN HEENT: PERRL/EOMI, Moist Mucous Membranes; No Scleral Icterus (L), No Scleral Icterus (R) Neck: Normal Inspection, Supple Respiratory: Decreased Breath Sounds, Other (on 4lpm NC) Cardiovascular: Regular Rate, Rhythm, No Murmur Capillary Refill: Less Than 3 Seconds Gastrointestinal: normal bowel sounds, non tender, soft Extremity: No Calf Tenderness, No Pedal Edema Neurologic/Psychiatric: Alert, Oriented x3, Normal Mood/Affect Skin: Normal Color, Warm/Dry Results Lab Laboratory Tests 05/30/21 11:40 05/31/21 04:52 Assessment/Plan Assessment/Plan Covid PNA with worsening hypoxemia PLAN: vapotherm, BIPAP and intubation if necessary Critical Care: Critically Ill Patient End of Life Care: Comfort Measures Time spent on discussion(mins): 15 KARI SPENCER MD May 31, 2021 10:28
--- NOTE | 2021-05-31 11:46 | Diagnostic Imaging Report ---
INDICATION: Follow-up dyspnea and Covid pneumonia. COMPARISON: 05/30/2021. DISCUSSION: Single portable upright view of the chest was obtained. Mild cardiomegaly is stable. Severe pulmonary infiltrates are not significantly changed given differences in technique. Elevated right hemidiaphragm. No pleural fluid or pneumothorax. No osseous abnormality. IMPRESSION: 1. Stable severe pulmonary infiltrates. Dictated by: Dictated on workstation # [id number]
[2021-05-31] MEDS: ENOXAPARIN 40 MG/0.4 ML (LOVENOX) SYR SQ SCH (16:55)
[2021-05-31] MEDS: REMDESIVIR 100 MG/NS 250 ML IVPB IV SCH ×2 (16:55)
[2021-06-01] VITALS (24 sets, daily range): BP systolic 107–148; BP diastolic 57–86
[2021-06-01] MEDS: NS IV 1000 ML 1,000 ML IV SCH ×3 (01:25→18:33)
[2021-06-01] MEDS: RT-ALBUTEROL INHALER HFA (VENTOLIN HFA) 18 GM IH SCH ×7 (02:35→22:05)
[2021-06-01 03:50] LABS: BASOPHILS % (AUTO) 0 % (0-10); EOSINOPHILS % (AUTO) 0 % (0-10); HEMATOCRIT 37 % (35-52); LYMPHOCYTES # (AUTO) 1.6 10^3/uL (1.0-4.0); LYMPHOCYTES % (AUTO) 17 % (12-44); MEAN CORPUSCULAR HEMOGLOBIN 31 pg (25-34); MEAN CORPUSCULAR HGB CONC 33 g/dL (32-36); MEAN CORPUSCULAR VOLUME 94 fL (80-99); MEAN PLATELET VOLUME 10.7 fL (9.0-12.2); MONOCYTES # (AUTO) 0.4 10^3/uL (0.0-1.0); MONOCYTES % (AUTO) 5 % (0-12); NEUTROPHILS # (AUTO) 7.1 10^3/uL (1.8-7.8); NEUTROPHILS % (AUTO) 77 % (42-75); PLATELET COUNT 214 10^3/uL (130-400); WHITE BLOOD COUNT 9.1 10^3/uL (4.3-11.0)
[2021-06-01 04:18] LABS: CHLORIDE 107 MMOL/L (98-107); POTASSIUM 3.4 MMOL/L (3.6-5.0); SODIUM 145 MMOL/L (135-145)
[2021-06-01 04:19] LABS: CALCIUM 7.9 MG/DL (8.5-10.1)
[2021-06-01 04:20] LABS: GLUCOSE 108 MG/DL (70-105)
[2021-06-01 04:21] LABS: CARBON DIOXIDE 26 MMOL/L (21-32)
[2021-06-01 04:23] LABS: PHOSPHORUS 2.2 MG/DL (2.3-4.7)
[2021-06-01 04:24] LABS: BUN/CREATININE RATIO 17; CREATININE SERUM 0.72 MG/DL (0.60-1.30); GFR ESTIMATED > 60
[2021-06-01 04:26] LABS: MAGNESIUM 2.1 MG/DL (1.6-2.4)
[2021-06-01] MEDS: POTASSIUM CL 10MEQ/50ML IVPB 50 ML IV SCH (05:43)
[2021-06-01] MEDS: KCL 20 MEQ TAB (K-DUR) PO SCH (05:43)
[2021-06-01] MEDS: MAGNESIUM 1 GM/100 ML IVPB 100 ML IV SCH (05:43)
[2021-06-01] MEDS: CATHETER FLUSH 10 ML SYR IV SCH ×3 (06:21→19:42)
--- NOTE | 2021-06-01 08:28 | Tele-ICU Progress Note ---
Progress Note video rounds completed 61 y/o f with Covid PNA Stable from yesterday, no increased resrp issues PE: very comfortable lying in bed Pulse 75' mildly tachpneic RR 32 Sat 91% BP: 137/74 on vapotherm Labs: wbc 9.1 Hgb: 12 plts: 214 Na: 145 K 3.4, being replaced Cl: 10 CO2: 26 BUN: 12 creat:" 0.72 Glu 108 Meds: remdesivir, decadron. pantoprazole and lovenox Plan: continue full supportive care If worsening hypoxemia try BIPAP or may need intubation if worsens, but for now stable Focused Exam Height, Weight, BMI Height: 5'6.00" Weight: 175lbs. oz. 79.172160lc; 30.71 BMI Method:Stated KARI SPENCER MD Jun 01, 2021 08:28
[2021-06-01] MEDS: PANTOPRAZOLE 40 MG (PROTONIX) TAB PO SCH (08:34)
[2021-06-01] MEDS: dexAMETHasone 6 MG TAB (DECADRON) PO SCH (08:34)
[2021-06-01] MEDS: BENZONATATE 100 MG (TESSALON) CAPSULE PO PRN ×2 (08:55→19:42)
[2021-06-01] MEDS: guaiFENesin/DM (ROBITUSSIN DM) 10 ML UDC PO PRN ×2 (08:55→19:42)
[2021-06-01] MEDS ORDERED: KCL 20 MEQ TAB (K-DUR) PO NR (09:00)
[2021-06-01] MEDS ORDERED: KCL 20 MEQ TAB (K-DUR) PO ONE (09:00)
--- NOTE | 2021-06-01 10:29 | Progress Note - Hospitalist ---
Subjective HPI/CC On Admission Date Seen by Provider: May 31, 2021 (late entry note) Time Seen by Provider: 10:30 Pt is a 61yoCF with no known PMH who presented to the ER due to cough and shortness of breath. She states her symptoms started roughly 1 week ago and she thought it was just a sinus infection. As it progressed she became very tired and thought it settled in her chest. She was tested for COVID here and was positive. She was hypoxic requiring 4lpm NC to maintain saturations. She denies any loss of taste or smell. She did have diarrhea but that has resolved. She has nausea and poor oral intake. She has not been vaccinated. Subjective/Events-last exam Pt reports persistent cough and SOB. Had to increase to Vpaotherm this morning. Discussed plan to transfer to the ICU and she is agreeable that expresses anxiety about what this means for her prognosis. We discussed how we will just take one day at a time and give her support as her body needs it. Objective Exam Vital Signs Vital Signs Date Time Temp Pulse Resp B/P (MAP) Pulse Ox O2 Delivery O2 Flow Rate FiO2 06/01/21 09:00 73 18 130/70 (90) 95 Vapotherm 25.00 100.00 06/01/21 08:00 100 06/01/21 07:38 36.8 Capillary Refill : Less Than 3 Seconds General Appearance: No Apparent Distress, WD/WN, Anxious Respiratory: No Accessory Muscle Use, Crackles, Decreased Breath Sounds, Other (on Vapotherm) Cardiovascular: Regular Rate, Rhythm, No Murmur Extremity: No Calf Tenderness, No Pedal Edema Neurologic/Psychiatric: Alert, Oriented x3 Results/Procedures Lab Laboratory Tests 06/01/21 03:32 Patient resulted labs reviewed. Imaging: Reviewed Imaging Report Assessment/Plan Assessment and Plan Assess & Plan/Chief Complaint Acute hypoxic respiratory failure due to COVID19 Increased to Vapotherm, discussed with TelePulm and recommended transfer to ICU- orders placed Continue on steroids Zofran prn nausea, antitussives prn Remdesivir Convalescent plasma ordered, patient consented, to be here today IS, MAT protocol Prone as able TeleICU when in ICU DVT ppx; Lovenox Critical Care Critically Ill Patient Diagnosis/Problems Diagnosis/Problems (1) Acute respiratory failure (2) COVID-19 Status: Acute JILL LEWIS MD Jun 01, 2021 10:29
--- NOTE | 2021-06-01 10:32 | Progress Note - Hospitalist ---
Subjective HPI/CC On Admission Date Seen by Provider: Jun 01, 2021 Time Seen by Provider: 10:30 Pt is a 61yoCF with no known PMH who presented to the ER due to cough and shortness of breath. She states her symptoms started roughly 1 week ago and she thought it was just a sinus infection. As it progressed she became very tired and thought it settled in her chest. She was tested for COVID here and was positive. She was hypoxic requiring 4lpm NC to maintain saturations. She denies any loss of taste or smell. She did have diarrhea but that has resolved. She has nausea and poor oral intake. She has not been vaccinated. Subjective/Events-last exam Pt reports feeling tired today, more worn out. Was up coughing a lot all night. No other complaints. RN reports they had to increase Vapotherm settings for hypoxia. Objective Exam Vital Signs Vital Signs Date Time Temp Pulse Resp B/P (MAP) Pulse Ox O2 Delivery O2 Flow Rate FiO2 06/01/21 09:00 73 18 130/70 (90) 95 Vapotherm 25.00 100.00 06/01/21 08:00 100 06/01/21 07:38 36.8 Capillary Refill : Less Than 3 Seconds General Appearance: No Apparent Distress, WD/WN Respiratory: No Accessory Muscle Use, Crackles, Other (on Vapotherm 30/100) Cardiovascular: Regular Rate, Rhythm, No Murmur Gastrointestinal: Normal Bowel Sounds, Non Tender, Soft Neurologic/Psychiatric: Alert, Oriented x3, Normal Mood/Affect Results/Procedures Lab Laboratory Tests 06/01/21 03:32 Patient resulted labs reviewed. Imaging: Reviewed Imaging Report Assessment/Plan Assessment and Plan Assess & Plan/Chief Complaint Acute hypoxic respiratory failure due to COVID19 Increasing Vapotherm settings, maintain in ICU Continue on steroids Zofran prn nausea, antitussives prn Remdesivir Convalescent plasma given 05/31 IS, MAT protocol Prone as able TeleICU DVT ppx; Lovenox Critical Care Critically Ill Patient Diagnosis/Problems Diagnosis/Problems (1) Acute respiratory failure (2) COVID-19 Status: Acute JILL LEWIS MD Jun 01, 2021 10:32
[2021-06-01] MEDS: ENOXAPARIN 40 MG/0.4 ML (LOVENOX) SYR SQ SCH (16:49)
[2021-06-01] MEDS: REMDESIVIR 100 MG/NS 250 ML IVPB IV SCH ×2 (16:49)
[2021-06-02] VITALS (25 sets, daily range): BP systolic 100–156; BP diastolic 66–92
[2021-06-02 04:27] LABS: BASOPHILS % (AUTO) 0 % (0-10); EOSINOPHILS % (AUTO) 0 % (0-10); HEMATOCRIT 37 % (35-52); HEMOGLOBIN 12.1 g/dL (11.5-16.0); LYMPHOCYTES # (AUTO) 1.1 10^3/uL (1.0-4.0); LYMPHOCYTES % (AUTO) 14 % (12-44); MEAN CORPUSCULAR HEMOGLOBIN 31 pg (25-34); MEAN CORPUSCULAR HGB CONC 33 g/dL (32-36); MEAN CORPUSCULAR VOLUME 94 fL (80-99); MEAN PLATELET VOLUME 10.5 fL (9.0-12.2); MONOCYTES # (AUTO) 0.4 10^3/uL (0.0-1.0); MONOCYTES % (AUTO) 4 % (0-12); NEUTROPHILS # (AUTO) 6.4 10^3/uL (1.8-7.8); NEUTROPHILS % (AUTO) 81 % (42-75); PLATELET COUNT 246 10^3/uL (130-400); WHITE BLOOD COUNT 7.9 10^3/uL (4.3-11.0)
[2021-06-02 05:02] LABS: CHLORIDE 105 MMOL/L (98-107); POTASSIUM 3.6 MMOL/L (3.6-5.0); SODIUM 142 MMOL/L (135-145)
[2021-06-02 05:04] LABS: CALCIUM 7.9 MG/DL (8.5-10.1); GLUCOSE 109 MG/DL (70-105)
[2021-06-02 05:06] LABS: CARBON DIOXIDE 24 MMOL/L (21-32)
[2021-06-02 05:08] LABS: CREATININE SERUM 0.71 MG/DL (0.60-1.30); GFR ESTIMATED > 60
[2021-06-02 05:09] LABS: BUN/CREATININE RATIO 18
[2021-06-02 05:10] LABS: MAGNESIUM 2.1 MG/DL (1.6-2.4)
[2021-06-02] MEDS: POTASSIUM CL 10MEQ/50ML IVPB 50 ML IV SCH (05:30)
[2021-06-02] MEDS: KCL 20 MEQ TAB (K-DUR) PO SCH (05:30)
[2021-06-02] MEDS: MAGNESIUM 1 GM/100 ML IVPB 100 ML IV SCH (05:30)
[2021-06-02] MEDS: NS IV 1000 ML 1,000 ML IV SCH ×3 (05:36→20:08)
[2021-06-02] MEDS: dexAMETHasone 6 MG TAB (DECADRON) PO SCH (05:36)
[2021-06-02] MEDS: CATHETER FLUSH 10 ML SYR IV SCH ×3 (05:39→22:23)
[2021-06-02] MEDS: RT-ALBUTEROL INHALER HFA (VENTOLIN HFA) 18 GM IH SCH ×5 (06:21→21:30)
[2021-06-02] MEDS: PANTOPRAZOLE 40 MG (PROTONIX) TAB PO SCH (09:03)
--- NOTE | 2021-06-02 11:23 | Progress Note - Hospitalist ---
Subjective HPI/CC On Admission Date Seen by Provider: Jun 02, 2021 Time Seen by Provider: 09:40 Pt is a 61yoCF with no known PMH who presented to the ER due to cough and shortness of breath. She states her symptoms started roughly 1 week ago and she thought it was just a sinus infection. As it progressed she became very tired and thought it settled in her chest. She was tested for COVID here and was positive. She was hypoxic requiring 4lpm NC to maintain saturations. She denies any loss of taste or smell. She did have diarrhea but that has resolved. She has nausea and poor oral intake. She has not been vaccinated. Subjective/Events-last exam She is feeling okay this morning. She is a bit short of breath. She has a cough. She denies fevers. She denies nausea, vomiting, and diarrhea. She has no other complaints or concerns. We discussed her high oxygen requirements and the possible need for BiPAP or mechanical ventilation soon. Objective Exam Vital Signs Vital Signs Date Time Temp Pulse Resp B/P (MAP) Pulse Ox O2 Delivery O2 Flow Rate FiO2 06/02/21 11:15 98 Vapotherm 40.00 100 06/02/21 11:00 83 12 143/78 (99) 06/02/21 07:30 36.1 Capillary Refill : Less Than 3 Seconds General Appearance: No Apparent Distress, Obese Respiratory: No Respiratory Distress, Decreased Breath Sounds Cardiovascular: Regular Rate, Rhythm, No Edema, No Murmur Gastrointestinal: Normal Bowel Sounds, Non Tender, Soft Extremity: Normal Inspection, Non Tender, No Pedal Edema Neurologic/Psychiatric: Alert, Oriented x3, No Motor/Sensory Deficits, Normal Mood/Affect Skin: Normal Color, Warm/Dry Results/Procedures Lab Laboratory Tests 06/02/21 04:03 Patient resulted labs reviewed. Imaging: Reviewed Imaging Report Assessment/Plan Assessment and Plan Assess & Plan/Chief Complaint Acute respiratory failure due to COVID-19 Elevated d-dimer Requiring maximal support on Vapotherm Decadron Remdesivir s/p convalescent plasma IS, MAT protocol Prone as able TeleICU Begin therapeutic Lovenox Obesity Clinically significant, no acute management needs DVT ppx: Already receiving therapeutic anticoagulation Critical Care Critically Ill Patient Diagnosis/Problems Diagnosis/Problems (1) Acute respiratory failure due to COVID-19 Status: Acute (2) Elevated d-dimer Status: Acute LUIS M FORBES MD Jun 02, 2021 11:23
[2021-06-02] MEDS: ENOXAPARIN 100 MG/1 ML (LOVENOX) SYR SC SCH ×2 (14:18→22:23)
[2021-06-02] MEDS: REMDESIVIR 100 MG/NS 250 ML IVPB IV SCH ×2 (16:02)
[2021-06-02] MEDS: BENZONATATE 100 MG (TESSALON) CAPSULE PO PRN (22:22)
[2021-06-02] MEDS: guaiFENesin/DM (ROBITUSSIN DM) 10 ML UDC PO PRN (22:22)
[2021-06-03] VITALS (28 sets, daily range): BP systolic 116–162; BP diastolic 62–95
[2021-06-03] MEDS ORDERED: LORazepam INJ 2 MG/ML (ATIVAN) VIAL IVP PRN (01:15)
[2021-06-03] MEDS: RT-ALBUTEROL INHALER HFA (VENTOLIN HFA) 18 GM IH SCH ×6 (01:30→22:25)
[2021-06-03 04:09] LABS: BASOPHILS % (AUTO) 0 % (0-10); EOSINOPHILS # (AUTO) 0.1 10^3/uL (0.0-0.3); EOSINOPHILS % (AUTO) 0 % (0-10); HEMATOCRIT 37 % (35-52); HEMOGLOBIN 12.3 g/dL (11.5-16.0); LYMPHOCYTES # (AUTO) 0.9 10^3/uL (1.0-4.0); LYMPHOCYTES % (AUTO) 7 % (12-44); MEAN CORPUSCULAR HEMOGLOBIN 31 pg (25-34); MEAN CORPUSCULAR HGB CONC 33 g/dL (32-36); MEAN CORPUSCULAR VOLUME 94 fL (80-99); MEAN PLATELET VOLUME 10.3 fL (9.0-12.2); MONOCYTES # (AUTO) 0.4 10^3/uL (0.0-1.0); MONOCYTES % (AUTO) 3 % (0-12); NEUTROPHILS # (AUTO) 11.3 10^3/uL (1.8-7.8); NEUTROPHILS % (AUTO) 88 % (42-75); PLATELET COUNT 241 10^3/uL (130-400); WHITE BLOOD COUNT 12.7 10^3/uL (4.3-11.0)
[2021-06-03 04:13] LABS: CHLORIDE 105 MMOL/L (98-107); POTASSIUM 3.4 MMOL/L (3.6-5.0); SODIUM 142 MMOL/L (135-145)
[2021-06-03 04:14] LABS: CALCIUM 7.8 MG/DL (8.5-10.1)
[2021-06-03 04:15] LABS: GLUCOSE 115 MG/DL (70-105)
[2021-06-03 04:16] LABS: CARBON DIOXIDE 26 MMOL/L (21-32)
[2021-06-03 04:18] LABS: PHOSPHORUS 3.1 MG/DL (2.3-4.7)
[2021-06-03 04:19] LABS: BUN/CREATININE RATIO 18; CREATININE SERUM 0.73 MG/DL (0.60-1.30); GFR ESTIMATED > 60
[2021-06-03 04:25] LABS: ATYPICAL LYMPHOCYTES 2 %; BAND NEUTROPHILS 2 %; BURR CELLS SLIGHT; LYMPHOCYTES % (MANUAL) 5 %; MONOCYTES % (MANUAL) 2 %; NEUTROPHILS % (MANUAL) 89 %
[2021-06-03] MEDS: POTASSIUM CL 10MEQ/50ML IVPB 50 ML IV SCH (04:39)
[2021-06-03] MEDS: MAGNESIUM 1 GM/100 ML IVPB 100 ML IV SCH (04:39)
[2021-06-03] MEDS: CATHETER FLUSH 10 ML SYR IV SCH ×3 (05:12→23:08)
[2021-06-03] MEDS: KCL 20 MEQ TAB (K-DUR) PO SCH (05:12)
[2021-06-03] MEDS: dexAMETHasone 6 MG TAB (DECADRON) PO SCH (05:12)
--- NOTE | 2021-06-03 07:39 | Tele-ICU Progress Note ---
Subjective Date Seen by a Provider: Jun 02, 2021 Time Seen by a Provider: 08:44 Sepsis Event Evaluation Height, Weight, BMI Height: 5'6.00" Weight: 175lbs. oz. 79.900898fq; 30.71 BMI Method:Stated Exam Exam Patient acknowledged, consented, and participated in this virtual visit which was conducted using real time audio/video Vital Signs Date Time Temp Pulse Resp B/P (MAP) Pulse Ox O2 Delivery O2 Flow Rate FiO2 06/03/21 06:45 85 38 96 NIV Bilevel 80.00 06/03/21 06:38 84 35 97 100.00 06/03/21 06:00 86 33 151/89 (109) 96 NIV Bilevel 100.00 06/03/21 05:00 92 151/83 (114) NIV Bilevel 100.00 06/03/21 04:00 36.6 06/03/21 04:00 NIV Bilevel 06/03/21 04:00 80 34 147/80 (111) 95 NIV Bilevel 100.00 06/03/21 03:00 80 37 146/91 (101) 97 NIV Bilevel 100.00 06/03/21 02:24 81 38 153/87 (106) 94 NIV Bilevel 100.00 06/03/21 01:32 84 162/95 (117) 93 NIV Bilevel 100.00 06/03/21 01:30 36.8 84 30 96 NIV Bilevel 06/03/21 01:30 83 36 93 100.00 06/03/21 01:00 82 06/03/21 00:20 88 33 88 Vapotherm 40.00 90.00 06/03/21 00:00 36.8 06/03/21 00:00 79 21 158/93 (114) 92 Vapotherm 40.00 90.00 06/03/21 00:00 Vapotherm 40.00 95 06/02/21 23:00 82 27 149/86 (101) 94 Vapotherm 40.00 90.00 06/02/21 22:00 67 29 156/83 (114) 95 Vapotherm 40.00 90.00 06/02/21 21:31 91 Vapotherm 40.00 93 06/02/21 21:00 93 29 155/92 (126) 87 Vapotherm 40.00 90.00 06/02/21 20:00 Vapotherm 40.00 95 06/02/21 20:00 76 34 152/82 (112) 90 Vapotherm 40.00 90.00 06/02/21 19:42 36.2 06/02/21 19:00 80 06/02/21 19:00 80 13 148/78 (109) 92 Vapotherm 40.00 90.00 06/02/21 18:00 75 34 152/86 (108) 91 Vapotherm 40.00 90.00 06/02/21 18:00 92 Vapotherm 40.00 90 06/02/21 17:00 80 140/87 (104) 92 Vapotherm 40.00 90.00 06/02/21 16:00 72 30 149/76 (100) 91 Vapotherm 40.00 90.00 06/02/21 16:00 Vapotherm 40.00 90 06/02/21 16:00 36.4 06/02/21 15:00 70 26 149/71 (97) 93 Vapotherm 40.00 90.00 06/02/21 14:34 94 Vapotherm 40.00 90 06/02/21 14:00 79 33 148/76 (100) 93 Vapotherm 40.00 90.00 06/02/21 13:00 69 31 154/83 (106) 93 Vapotherm 40.00 90.00 06/02/21 12:40 76 06/02/21 12:00 74 33 144/79 (100) 89 Vapotherm 40.00 90.00 06/02/21 12:00 Vapotherm 40.00 100 06/02/21 11:50 36.0 06/02/21 11:21 Vapotherm 40.00 90.00 06/02/21 11:15 98 Vapotherm 40.00 100 06/02/21 11:00 83 12 143/78 (99) 92 Vapotherm 40.00 100.00 06/02/21 10:00 78 30 134/72 (92) 92 Vapotherm 40.00 100.00 06/02/21 09:00 75 24 108/87 (94) 95 Vapotherm 40.00 100.00 06/02/21 08:00 Vapotherm 40.00 100 06/02/21 08:00 73 28 155/79 (104) 94 Vapotherm 40.00 100.00 I & O 06/03/21 07:00 Intake Total 2900 ml Balance 2900 ml Height & Weight Height: 5'6.00" Weight: 175lbs. oz. 79.192404wl; 30.71 BMI Method:Stated General Appearance: No Apparent Distress, Obese HEENT: PERRL/EOMI, Moist Mucous Membranes; No Scleral Icterus (L), No Scleral Icterus (R) Neck: Normal Inspection, Supple Respiratory: No Respiratory Distress, Decreased Breath Sounds Cardiovascular: Regular Rate, Rhythm, No Edema, No Murmur Capillary Refill: Less Than 3 Seconds Gastrointestinal: normal bowel sounds, non tender, soft Extremity: Normal Inspection, Non Tender, No Pedal Edema Neurologic/Psychiatric: Alert, Oriented x3, No Motor/Sensory Deficits, Normal Mood/Affect Skin: Normal Color, Warm/Dry Results Lab Laboratory Tests 06/02/21 04:03 06/03/21 03:38 Assessment/Plan Assessment/Plan Available chart/ vitals / labs / Images reviewed Video assessment done using teleICU camera, rest of exam as per RN Discussed with RN Events overnight : Afebrile hemodynamically stable, no pressors, I/O = pos 3L Drips: As per RN exam : Consultants: Hospital course: 61 y/o f with Covid PNA 4L o2 06/02 = Vapotherm 40L 100% A/P Acute resp failure - covid PNA ( CTA 05/30 - no PE - Vapotherm , PRN BIPAP - proning -lovenox proph dose ( dd mary 1.5 05/30; 06/02 pending - keep fluid balanse even or negative COVID PNA / possible bact PNA - decadron 05/31-> -Convalescent plasma given 05/31 -remdesivir - off abx , PCT 06/02 Lines : periph Langston: OG: Nutrition: po Analgesia: Anxiety/ delirium na VTE Prophylaxis: lovenox 40 q24 Stress Ulcer Prophylaxis: ppi Glycemic Control: + Plans in collaboration with bedside consultants and IM MDs. Discussed with RN to reach out if any questions or concerns A total of 25 minutes of critical care time was devoted to this patient today, required to treat and/or prevent further deterioration of critical care condition ( as above ) . YOSHI HILLS MD Jun 03, 2021 07:39
[2021-06-03] MEDS: NS IV 1000 ML 1,000 ML IV SCH (09:46)
[2021-06-03] MEDS ORDERED: FUROSEMIDE 40 MG/4 ML INJ (LASIX) IVP NR (09:57)
--- NOTE | 2021-06-03 09:57 | Tele-ICU Progress Note ---
Subjective Date Seen by a Provider: Jun 03, 2021 Time Seen by a Provider: 09:57 Sepsis Event Evaluation Height, Weight, BMI Height: 5'6.00" Weight: 175lbs. oz. 79.171567rs; 30.71 BMI Method:Stated Exam Exam Patient acknowledged, consented, and participated in this virtual visit which was conducted using real time audio/video Vital Signs Date Time Temp Pulse Resp B/P (MAP) Pulse Ox O2 Delivery O2 Flow Rate FiO2 06/03/21 09:00 79 32 148/92 (110) 96 NIV Bilevel 80.00 06/03/21 08:35 NIV Bilevel 80 06/03/21 08:00 85 37 141/85 (103) 91 NIV Bilevel 80.00 06/03/21 07:57 37.3 06/03/21 07:00 87 39 156/84 (108) 92 NIV Bilevel 80.00 06/03/21 06:45 85 38 96 NIV Bilevel 80.00 06/03/21 06:43 84 06/03/21 06:38 84 35 97 100.00 06/03/21 06:00 86 33 151/89 (109) 96 NIV Bilevel 100.00 06/03/21 05:00 92 151/83 (114) NIV Bilevel 100.00 06/03/21 04:00 36.6 06/03/21 04:00 NIV Bilevel 06/03/21 04:00 80 34 147/80 (111) 95 NIV Bilevel 100.00 06/03/21 03:00 80 37 146/91 (101) 97 NIV Bilevel 100.00 06/03/21 02:24 81 38 153/87 (106) 94 NIV Bilevel 100.00 06/03/21 01:32 84 162/95 (117) 93 NIV Bilevel 100.00 06/03/21 01:30 36.8 84 30 96 NIV Bilevel 06/03/21 01:30 83 36 93 100.00 06/03/21 01:00 82 06/03/21 00:20 88 33 88 Vapotherm 40.00 90.00 06/03/21 00:00 36.8 06/03/21 00:00 79 21 158/93 (114) 92 Vapotherm 40.00 90.00 06/03/21 00:00 Vapotherm 40.00 95 06/02/21 23:00 82 27 149/86 (101) 94 Vapotherm 40.00 90.00 06/02/21 22:00 67 29 156/83 (114) 95 Vapotherm 40.00 90.00 06/02/21 21:31 91 Vapotherm 40.00 93 06/02/21 21:00 93 29 155/92 (126) 87 Vapotherm 40.00 90.00 06/02/21 20:00 Vapotherm 40.00 95 06/02/21 20:00 76 34 152/82 (112) 90 Vapotherm 40.00 90.00 06/02/21 19:42 36.2 06/02/21 19:00 80 06/02/21 19:00 80 13 148/78 (109) 92 Vapotherm 40.00 90.00 06/02/21 18:00 75 34 152/86 (108) 91 Vapotherm 40.00 90.00 06/02/21 18:00 92 Vapotherm 40.00 90 06/02/21 17:00 80 140/87 (104) 92 Vapotherm 40.00 90.00 06/02/21 16:00 72 30 149/76 (100) 91 Vapotherm 40.00 90.00 06/02/21 16:00 Vapotherm 40.00 90 06/02/21 16:00 36.4 06/02/21 15:00 70 26 149/71 (97) 93 Vapotherm 40.00 90.00 06/02/21 14:34 94 Vapotherm 40.00 90 06/02/21 14:00 79 33 148/76 (100) 93 Vapotherm 40.00 90.00 06/02/21 13:00 69 31 154/83 (106) 93 Vapotherm 40.00 90.00 06/02/21 12:40 76 06/02/21 12:00 74 33 144/79 (100) 89 Vapotherm 40.00 90.00 06/02/21 12:00 Vapotherm 40.00 100 06/02/21 11:50 36.0 06/02/21 11:21 Vapotherm 40.00 90.00 06/02/21 11:15 98 Vapotherm 40.00 100 06/02/21 11:00 83 12 143/78 (99) 92 Vapotherm 40.00 100.00 06/02/21 10:00 78 30 134/72 (92) 92 Vapotherm 40.00 100.00 I & O 06/03/21 07:00 Intake Total 2900 ml Balance 2900 ml Height & Weight Height: 5'6.00" Weight: 175lbs. oz. 79.450583jk; 30.71 BMI Method:Stated General Appearance: No Apparent Distress, Obese HEENT: PERRL/EOMI, Moist Mucous Membranes; No Scleral Icterus (L), No Scleral Icterus (R) Neck: Normal Inspection, Supple Respiratory: No Respiratory Distress, Decreased Breath Sounds Cardiovascular: Regular Rate, Rhythm, No Edema, No Murmur Capillary Refill: Less Than 3 Seconds Gastrointestinal: normal bowel sounds, non tender, soft Extremity: Normal Inspection, Non Tender, No Pedal Edema Neurologic/Psychiatric: Alert, Oriented x3, No Motor/Sensory Deficits, Normal Mood/Affect Skin: Normal Color, Warm/Dry Results Lab Laboratory Tests 06/02/21 04:03 06/03/21 03:38 Assessment/Plan Assessment/Plan A/P Acute resp failure - covid PNA ( CTA 05/30 - no PE - Vapotherm , 06/02 to BIPAP, now on 12/04 rr14 ( spnt 35 ) tv 350-500 MV ?15-20L - proning - poor compliance -lovenox proph dose ( dd mary 1.5 05/30; 06/02 3.2 - lovenox was increased to therapeutic dose - keep fluid balanse even or negative - DIURESIS TODAY < STOP IVF COVID PNA / possible bact PNA - decadron 05/31-> -Convalescent plasma given 05/31 -remdesivir - off abx , PCT 06/02 negative Lines : periph Langston: OG: Nutrition: po Analgesia: Anxiety/ delirium na VTE Prophylaxis: lovenox full dose Stress Ulcer Prophylaxis: ppi Glycemic Control: + Plans in collaboration with bedside consultants and IM MDs. Discussed with RN to reach out if any questions or concerns A total of 37 minutes of critical care time was devoted to this patient today, required to treat and/or prevent further deterioration of critical care condition ( as above ) . YOSHI HILLS MD Jun 03, 2021 09:57
[2021-06-03] MEDS: PANTOPRAZOLE 40 MG (PROTONIX) TAB PO SCH (10:26)
[2021-06-03] MEDS: ENOXAPARIN 100 MG/1 ML (LOVENOX) SYR SC SCH ×2 (10:31→23:08)
--- NOTE | 2021-06-03 14:34 | Progress Note - Hospitalist ---
Subjective HPI/CC On Admission Date Seen by Provider: Jun 03, 2021 Time Seen by Provider: 10:20 Pt is a 61yoCF with no known PMH who presented to the ER due to cough and shortness of breath. She states her symptoms started roughly 1 week ago and she thought it was just a sinus infection. As it progressed she became very tired and thought it settled in her chest. She was tested for COVID here and was positive. She was hypoxic requiring 4lpm NC to maintain saturations. She denies any loss of taste or smell. She did have diarrhea but that has resolved. She has nausea and poor oral intake. She has not been vaccinated. Subjective/Events-last exam She is wearing BiPAP. She is short of breath. She is not having fevers. Objective Exam Vital Signs Vital Signs Date Time Temp Pulse Resp B/P (MAP) Pulse Ox O2 Delivery O2 Flow Rate FiO2 06/03/21 14:00 73 32 116/73 (87) 95 NIV Bilevel 70.00 06/03/21 12:15 100 06/03/21 11:35 36.9 Capillary Refill : Less Than 3 Seconds General Appearance: No Apparent Distress, Anxious, Obese Respiratory: Crackles, Respiratory Distress (tachypnea) Cardiovascular: Regular Rate, Rhythm, No Edema, No Murmur Gastrointestinal: Normal Bowel Sounds, Non Tender, Soft Extremity: Normal Inspection, Non Tender, No Pedal Edema Neurologic/Psychiatric: Alert, Oriented x3 Skin: Normal Color, Warm/Dry Results/Procedures Lab Laboratory Tests 06/03/21 03:38 Patient resulted labs reviewed. Imaging: Reviewed Imaging Report Assessment/Plan Assessment and Plan Assess & Plan/Chief Complaint Acute respiratory failure due to COVID-19 Elevated d-dimer Requiring BiPAP May require intubation soon TeleICU consulted, appreciate assistance Decadron Remdesivir s/p convalescent plasma IS, MAT protocol Prone as able Therapeutic Lovenox Obesity Clinically significant, no acute management needs DVT ppx: Already receiving therapeutic anticoagulation Critical Care Critically Ill Patient Diagnosis/Problems Diagnosis/Problems (1) Acute respiratory failure due to COVID-19 Status: Acute (2) Elevated d-dimer Status: Acute LUIS M FORBES MD Jun 03, 2021 14:34
[2021-06-04] VITALS (29 sets, daily range): BP systolic 88–139; BP diastolic 53–89
[2021-06-04] MEDS: ACETAMINOPHEN 325 MG TABLET PO PRN (01:17)
[2021-06-04] MEDS: RT-ALBUTEROL INHALER HFA (VENTOLIN HFA) 18 GM IH SCH ×5 (02:05→18:49)
[2021-06-04] MEDS: KCL 20 MEQ TAB (K-DUR) PO SCH (02:54)
[2021-06-04] MEDS: MAGNESIUM 1 GM/100 ML IVPB 100 ML IV SCH (02:54)
[2021-06-04] MEDS: POTASSIUM CL 10MEQ/50ML IVPB 50 ML IV SCH ×2 (02:54→08:39)
[2021-06-04 04:48] LABS: BASOPHILS % (AUTO) 0 % (0-10); EOSINOPHILS # (AUTO) 0.1 10^3/uL (0.0-0.3); EOSINOPHILS % (AUTO) 1 % (0-10); HEMATOCRIT 36 % (35-52); HEMOGLOBIN 12.2 g/dL (11.5-16.0); LYMPHOCYTES # (AUTO) 0.8 10^3/uL (1.0-4.0); LYMPHOCYTES % (AUTO) 7 % (12-44); MEAN CORPUSCULAR HEMOGLOBIN 31 pg (25-34); MEAN CORPUSCULAR HGB CONC 34 g/dL (32-36); MEAN CORPUSCULAR VOLUME 93 fL (80-99); MEAN PLATELET VOLUME 10.6 fL (9.0-12.2); MONOCYTES # (AUTO) 0.3 10^3/uL (0.0-1.0); MONOCYTES % (AUTO) 2 % (0-12); NEUTROPHILS # (AUTO) 10.3 10^3/uL (1.8-7.8); NEUTROPHILS % (AUTO) 89 % (42-75); PLATELET COUNT 262 10^3/uL (130-400); WHITE BLOOD COUNT 11.6 10^3/uL (4.3-11.0)
[2021-06-04 05:08] LABS: CHLORIDE 100 MMOL/L (98-107); POTASSIUM 3.4 MMOL/L (3.6-5.0); SODIUM 139 MMOL/L (135-145)
[2021-06-04 05:10] LABS: GLUCOSE 129 MG/DL (70-105)
[2021-06-04 05:11] LABS: CARBON DIOXIDE 28 MMOL/L (21-32)
[2021-06-04 05:13] LABS: CREATININE SERUM 0.74 MG/DL (0.60-1.30); GFR ESTIMATED > 60; PHOSPHORUS 2.7 MG/DL (2.3-4.7)
[2021-06-04 05:14] LABS: BUN/CREATININE RATIO 26
[2021-06-04 06:33] LABS: ABG BASE EXCESS 7.2 MMOL/L (-2.5-2.5); ABG OXYGEN SATURATION 93 % (94-100); ABG PCO2 38 MMHG (35-45); ABG PH 7.52 (7.37-7.43); ABG PO2 60 MMHG (79-93); ABG TCO2 31.7 MMOL/L (21.0-31.0)
[2021-06-04 06:35] LABS: ALLENS TEST YES-POS; INSPIRED O2 80% BIPAP; PATIENT TEMP 37.1; VENTILATOR NO
[2021-06-04] MEDS: CATHETER FLUSH 10 ML SYR IV SCH ×3 (06:45→21:53)
[2021-06-04] MEDS: dexAMETHasone 6 MG TAB (DECADRON) PO SCH (08:39)
[2021-06-04] MEDS: PANTOPRAZOLE 40 MG (PROTONIX) TAB PO SCH (08:39)
[2021-06-04] MEDS ORDERED: FUROSEMIDE 40 MG/4 ML INJ (LASIX) IVP ONE (08:45)
--- NOTE | 2021-06-04 08:53 | Diagnostic Imaging Report ---
INDICATION: Hypoxemia. EXAMINATION: Portable chest at 2:30 AM. FINDINGS: There are peripheral alveolar nodular infiltrates in both lungs. These appear slightly worse compared to the prior exam done on 05/31/2021. There are no effusions or pneumothoraces. IMPRESSION: Peripheral patchy alveolar infiltrates in both lungs with unfavorable progression of the infiltrates since 05/31/2021. Dictated by: Dictated on workstation # [id number]
[2021-06-04] MEDS ORDERED: NS (IVPB) 250 ML ONE (09:07)
[2021-06-04] MEDS ORDERED: NS (IVPB) 250 ML IV ONE (09:15)
[2021-06-04] MEDS ORDERED: LOPERAMIDE 2 MG (IMODIUM) TABLET PO PRN (10:15)
--- NOTE | 2021-06-04 10:25 | Tele-ICU Progress Note ---
Subjective Date Seen by a Provider: Jun 04, 2021 Time Seen by a Provider: 10:24 Sepsis Event Evaluation Height, Weight, BMI Height: 5'6.00" Weight: 175lbs. oz. 79.379317ry; 30.71 BMI Method:Stated Exam Exam Patient acknowledged, consented, and participated in this virtual visit which was conducted using real time audio/video Vital Signs Date Time Temp Pulse Resp B/P (MAP) Pulse Ox O2 Delivery O2 Flow Rate FiO2 06/04/21 10:00 80 28 136/89 (105) 92 NIV Bilevel 80.00 06/04/21 09:53 82 27 94 75.00 06/04/21 09:00 81 36 123/68 (86) 90 NIV Bilevel 80.00 06/04/21 08:37 37.1 06/04/21 08:16 95 NIV Bilevel 80 06/04/21 08:00 77 28 122/61 (81) 95 NIV Bilevel 80.00 06/04/21 07:23 78 29 94 80.00 06/04/21 07:00 72 06/04/21 07:00 72 23 135/68 (90) 97 NIV Bilevel 80.00 06/04/21 06:00 73 27 127/68 (87) 96 NIV Bilevel 80.00 06/04/21 06:00 37.0 06/04/21 05:00 74 28 88/53 (65) 91 NIV Bilevel 80.00 06/04/21 04:00 92 NIV Bilevel 80 06/04/21 04:00 81 29 114/57 (76) 90 NIV Bilevel 80.00 06/04/21 03:00 80 29 121/72 (85) 94 NIV Bilevel 80.00 06/04/21 02:05 85 32 91 80.00 06/04/21 02:00 85 33 101/59 (68) 91 NIV Bilevel 80.00 06/04/21 01:17 38.1 06/04/21 01:15 38.1 06/04/21 01:00 84 06/04/21 01:00 84 35 139/80 (104) 87 NIV Bilevel 80.00 06/04/21 00:00 84 34 138/81 (103) 97 NIV Bilevel 80.00 06/04/21 00:00 94 NIV Bilevel 80 06/03/21 23:15 NIV Bilevel 80.00 06/03/21 23:00 89 32 142/80 (96) 93 NIV Bilevel 70.00 06/03/21 22:25 89 32 96 80.00 06/03/21 22:18 NIV Bilevel 70.00 06/03/21 22:00 83 31 138/74 (96) 97 NIV Bilevel 80.00 06/03/21 21:00 81 34 142/75 (93) 99 NIV Bilevel 80.00 06/03/21 20:09 37.2 06/03/21 20:00 77 31 131/62 (91) 98 NIV Bilevel 80.00 06/03/21 20:00 91 NIV Bilevel 80 06/03/21 19:00 NIV Bilevel 80.00 06/03/21 19:00 79 06/03/21 19:00 79 28 131/66 (87) 96 NIV Bilevel 80.00 06/03/21 18:45 79 35 90 80.00 06/03/21 18:00 80 29 133/64 (87) 93 NIV Bilevel 70.00 06/03/21 17:00 75 31 129/76 (93) 97 NIV Bilevel 70.00 06/03/21 16:15 NIV Bilevel 80 06/03/21 16:14 36.8 06/03/21 16:00 78 21 126/70 (88) 92 NIV Bilevel 70.00 06/03/21 15:47 84 33 93 80.00 06/03/21 15:00 73 38 125/75 (92) 95 NIV Bilevel 70.00 06/03/21 14:00 73 32 116/73 (87) 95 NIV Bilevel 70.00 06/03/21 13:05 73 06/03/21 13:00 73 33 96 NIV Bilevel 100.00 06/03/21 12:39 NIV Bilevel 100.00 06/03/21 12:15 NIV Bilevel 100 06/03/21 12:00 84 34 130/82 (98) 96 NIV Bilevel 70.00 06/03/21 11:35 36.9 06/03/21 11:00 75 35 144/88 (106) 94 NIV Bilevel 70.00 06/03/21 10:43 76 33 93 80.00 I & O 06/04/21 07:00 Intake Total 1175 ml Output Total 2700 ml Balance -1525 ml Height & Weight Height: 5'6.00" Weight: 175lbs. oz. 79.927957sw; 30.71 BMI Method:Stated General Appearance: No Apparent Distress, Anxious, Obese HEENT: PERRL/EOMI, Moist Mucous Membranes; No Scleral Icterus (L), No Scleral Icterus (R) Neck: Normal Inspection, Supple Respiratory: Crackles, Respiratory Distress (tachypnea) Cardiovascular: Regular Rate, Rhythm, No Edema, No Murmur Capillary Refill: Less Than 3 Seconds Gastrointestinal: normal bowel sounds, non tender, soft Extremity: Normal Inspection, Non Tender, No Pedal Edema Neurologic/Psychiatric: Alert, Oriented x3 Skin: Normal Color, Warm/Dry Results Lab Laboratory Tests 06/03/21 03:38 06/04/21 04:09 Assessment/Plan Assessment/Plan Available chart/ vitals / labs / Images reviewed Video assessment done using teleICU camera, rest of exam as per RN Discussed with RN Events overnight : LOW GRADE FEVER hemodynamically stable, no pressors, I/O = neg 900 Drips: As per RN exam : Consultants: Hospital course: 61 y/o f with Covid PNA 4L o2 06/02 = Vapotherm 40L 100% 06/03- BIPAP 100% 06/04 - Bipap 80 5, diuresis 2400 A/P Acute resp failure - covid PNA ( CTA 05/30 - no PE - Vapotherm , 06/02 to BIPAP, now on 12/04 rr14 ( spnt 35 ) tv 350-500 MV ?15-20L - proning - poor compliance -lovenox proph dose ( dd mary 1.5 05/30; 06/02 3.2 - lovenox was increased to therapeutic dose - keep fluid balance even or negative - DIURESIS 2400 06/03 - improvef fio2 - continue TODAY CXR worsenig - WILL CHECK PCT - low treshold for ABX COVID PNA / possible bact PNA - decadron 05/31-> -Convalescent plasma given 05/31 -remdesivir - off abx , PCT 06/02 negative Lines : periph [place]: 06/03 OG: Nutrition: NOT TOLEARATE PO with BIPAP - INSURE 1 can - to try more Analgesia: Anxiety/ delirium na VTE Prophylaxis: lovenox full dose Stress Ulcer Prophylaxis: ppi Glycemic Control: + Plans in collaboration with bedside consultants and IM MDs. Discussed with RN to reach out if any questions or concerns A total of 37 minutes of critical care time was devoted to this patient today, required to treat and/or prevent further deterioration of critical care condition ( as above ) . YOSHI HILLS MD Jun 04, 2021 10:25
[2021-06-04] MEDS: ENOXAPARIN 100 MG/1 ML (LOVENOX) SYR SC SCH ×2 (11:21→21:53)
--- NOTE | 2021-06-04 18:29 | Progress Note - Hospitalist ---
Subjective HPI/CC On Admission Date Seen by Provider: Jun 04, 2021 Time Seen by Provider: 09:40 Pt is a 61yoCF with no known PMH who presented to the ER due to cough and shortness of breath. She states her symptoms started roughly 1 week ago and she thought it was just a sinus infection. As it progressed she became very tired and thought it settled in her chest. She was tested for COVID here and was positive. She was hypoxic requiring 4lpm NC to maintain saturations. She denies any loss of taste or smell. She did have diarrhea but that has resolved. She has nausea and poor oral intake. She has not been vaccinated. Subjective/Events-last exam She remains on BiPAP. She is feeling about the same. She denies pain. Objective Exam Vital Signs Vital Signs Date Time Temp Pulse Resp B/P (MAP) Pulse Ox O2 Delivery O2 Flow Rate FiO2 06/04/21 18:00 73 35 113/72 (86) 90 NIV Bilevel 80.00 06/04/21 15:51 37.1 06/04/21 12:15 80 Capillary Refill : Less Than 3 Seconds General Appearance: Anxious, Mild Distress (uncomfortable) Respiratory: No Respiratory Distress, Decreased Breath Sounds, Other (wearing BiPAP) Cardiovascular: Regular Rate, Rhythm, No Edema, No Murmur Gastrointestinal: Normal Bowel Sounds, Non Tender, Soft Extremity: Normal Inspection, Non Tender, No Pedal Edema Skin: Normal Color, Warm/Dry Results/Procedures Lab Laboratory Tests 06/04/21 04:09 Patient resulted labs reviewed. Imaging: Reviewed Imaging Report Assessment/Plan Assessment and Plan Assess & Plan/Chief Complaint Acute respiratory failure due to COVID-19 Pneumonia due to COVID-19 Hypercoagulable state associated with COVID-19 Requiring BiPAP May require intubation in the near future TeleICU consulted, appreciate assistance Procal negative, antibiotics not indicated Decadron s/p remdesivir s/p convalescent plasma IS, MAT protocol Prone as able Therapeutic Lovenox Obesity Clinically significant, no acute management needs DVT ppx: Already receiving therapeutic anticoagulation Critical Care Critically Ill Patient Diagnosis/Problems Diagnosis/Problems (1) Acute respiratory failure due to COVID-19 Status: Acute (2) Pneumonia due to COVID-19 virus Status: Acute (3) Hypercoagulable state associated with COVID-19 Status: Acute (4) Obesity Status: Chronic LUIS M FORBES MD Jun 04, 2021 18:29
[2021-06-05] VITALS (27 sets, daily range): BP systolic 104–136; BP diastolic 51–106
[2021-06-05] MEDS: RT-ALBUTEROL INHALER HFA (VENTOLIN HFA) 18 GM IH SCH ×7 (02:27→22:20)
[2021-06-05 03:59] LABS: BASOPHILS % (AUTO) 0 % (0-10); EOSINOPHILS # (AUTO) 0.1 10^3/uL (0.0-0.3); EOSINOPHILS % (AUTO) 2 % (0-10); HEMATOCRIT 37 % (35-52); HEMOGLOBIN 12.2 g/dL (11.5-16.0); LYMPHOCYTES # (AUTO) 0.6 10^3/uL (1.0-4.0); LYMPHOCYTES % (AUTO) 9 % (12-44); MEAN CORPUSCULAR HEMOGLOBIN 31 pg (25-34); MEAN CORPUSCULAR HGB CONC 33 g/dL (32-36); MEAN CORPUSCULAR VOLUME 93 fL (80-99); MEAN PLATELET VOLUME 9.8 fL (9.0-12.2); MONOCYTES # (AUTO) 0.3 10^3/uL (0.0-1.0); MONOCYTES % (AUTO) 4 % (0-12); NEUTROPHILS # (AUTO) 6.3 10^3/uL (1.8-7.8); NEUTROPHILS % (AUTO) 85 % (42-75); PLATELET COUNT 264 10^3/uL (130-400); WHITE BLOOD COUNT 7.4 10^3/uL (4.3-11.0)
[2021-06-05 04:11] LABS: CHLORIDE 100 MMOL/L (98-107); POTASSIUM 3.4 MMOL/L (3.6-5.0); SODIUM 143 MMOL/L (135-145)
[2021-06-05 04:12] LABS: CALCIUM 8.2 MG/DL (8.5-10.1)
[2021-06-05 04:13] LABS: GLUCOSE 113 MG/DL (70-105)
[2021-06-05 04:14] LABS: CARBON DIOXIDE 28 MMOL/L (21-32)
[2021-06-05 04:16] LABS: PHOSPHORUS 3.8 MG/DL (2.3-4.7)
[2021-06-05 04:17] LABS: BUN/CREATININE RATIO 31; CREATININE SERUM 0.74 MG/DL (0.60-1.30); GFR ESTIMATED > 60
[2021-06-05 04:19] LABS: MAGNESIUM 2.4 MG/DL (1.6-2.4)
[2021-06-05] MEDS: POTASSIUM CL 10MEQ/50ML IVPB 50 ML IV SCH ×3 (05:53→11:36)
[2021-06-05] MEDS: CATHETER FLUSH 10 ML SYR IV SCH ×2 (05:53→16:30)
[2021-06-05] MEDS: KCL 20 MEQ TAB (K-DUR) PO SCH (05:53)
[2021-06-05] MEDS: MAGNESIUM 1 GM/100 ML IVPB 100 ML IV SCH (05:53)
[2021-06-05] MEDS: dexAMETHasone 6 MG TAB (DECADRON) PO SCH (08:08)
[2021-06-05] MEDS: PANTOPRAZOLE 40 MG (PROTONIX) TAB PO SCH (08:08)
[2021-06-05] MEDS: ACETAMINOPHEN 325 MG TABLET PO PRN (08:08)
--- NOTE | 2021-06-05 09:37 | Tele-ICU Progress Note ---
Subjective Date Seen by a Provider: Jun 05, 2021 Time Seen by a Provider: 09:36 Sepsis Event Evaluation Height, Weight, BMI Height: 5'6.00" Weight: 175lbs. oz. 79.202963tn; 30.71 BMI Method:Stated Exam Exam Patient acknowledged, consented, and participated in this virtual visit which was conducted using real time audio/video Vital Signs Date Time Temp Pulse Resp B/P (MAP) Pulse Ox O2 Delivery O2 Flow Rate FiO2 06/05/21 09:00 61 19 113/57 (75) 94 NIV Bilevel 80.00 06/05/21 08:06 36.0 92 NIV Bilevel 80.00 06/05/21 08:00 61 22 122/63 (82) 92 NIV Bilevel 90.00 06/05/21 07:46 70 27 92 80.00 06/05/21 07:00 71 23 121/56 (77) 94 NIV Bilevel 90.00 06/05/21 06:35 70 06/05/21 06:00 70 24 126/65 (85) 97 NIV Bilevel 90.00 06/05/21 05:00 64 15 111/53 (72) 94 NIV Bilevel 90.00 06/05/21 04:00 92 NIV Bilevel 90 06/05/21 04:00 60 21 109/65 (80) 94 NIV Bilevel 90.00 06/05/21 03:00 65 16 124/72 (89) 95 NIV Bilevel 90.00 06/05/21 02:29 67 20 92 90.00 06/05/21 02:00 77 22 117/58 (77) 94 NIV Bilevel 90.00 06/05/21 01:00 75 18 116/59 (78) 96 NIV Bilevel 90.00 06/05/21 01:00 80 06/05/21 00:00 94 NIV Bilevel 90 06/05/21 00:00 62 22 108/62 (77) 92 NIV Bilevel 90.00 06/04/21 23:00 63 22 117/66 (83) 91 NIV Bilevel 90.00 06/04/21 22:00 67 24 121/71 (88) 93 NIV Bilevel 90.00 06/04/21 21:00 71 24 107/56 (73) 91 NIV Bilevel 90.00 06/04/21 20:00 91 NIV Bilevel 90 06/04/21 20:00 79 25 125/64 (84) 94 NIV Bilevel 90.00 06/04/21 19:41 37.1 06/04/21 19:00 NIV Bilevel 90.00 06/04/21 19:00 80 06/04/21 19:00 74 25 115/58 (77) 95 NIV Bilevel 90.00 06/04/21 18:50 80 31 87 85.00 06/04/21 18:00 73 35 113/72 (86) 90 NIV Bilevel 80.00 06/04/21 17:00 82 31 115/60 (78) 96 NIV Bilevel 80.00 06/04/21 16:12 97 NIV Bilevel 80 06/04/21 16:00 79 26 124/73 (90) 89 NIV Bilevel 80.00 06/04/21 15:51 37.1 06/04/21 15:36 82 32 90 85.00 06/04/21 15:00 77 29 126/73 (90) 85 NIV Bilevel 80.00 06/04/21 14:00 76 27 109/75 (86) 92 NIV Bilevel 80.00 06/04/21 13:00 76 30 124/69 (87) 95 NIV Bilevel 80.00 06/04/21 12:35 86 06/04/21 12:15 97 NIV Bilevel 80 06/04/21 12:00 80 26 122/77 (92) 96 NIV Bilevel 80.00 06/04/21 11:00 85 28 120/69 (86) 92 NIV Bilevel 80.00 06/04/21 10:00 80 28 136/89 (105) 92 NIV Bilevel 80.00 06/04/21 09:53 82 27 94 75.00 I & O 06/05/21 07:00 Intake Total 250 ml Output Total 2475 ml Balance -2225 ml Height & Weight Height: 5'6.00" Weight: 175lbs. oz. 79.148591zn; 30.71 BMI Method:Stated General Appearance: Anxious, Mild Distress (uncomfortable) HEENT: PERRL/EOMI, Moist Mucous Membranes; No Scleral Icterus (L), No Scleral Icterus (R) Neck: Normal Inspection, Supple Respiratory: No Respiratory Distress, Decreased Breath Sounds, Other (wearing BiPAP) Cardiovascular: Regular Rate, Rhythm, No Edema, No Murmur Capillary Refill: Less Than 3 Seconds Gastrointestinal: normal bowel sounds, non tender, soft Extremity: Normal Inspection, Non Tender, No Pedal Edema Neurologic/Psychiatric: Alert, Oriented x3 Skin: Normal Color, Warm/Dry Results Lab Laboratory Tests 06/04/21 04:09 06/05/21 03:25 06/05/21 03:45 Assessment/Plan Assessment/Plan Available chart/ vitals / labs / Images reviewed Video assessment done using teleICU camera, rest of exam as per RN Discussed with RN Events overnight : none afebrile hemodynamically stable, no pressors, I/O = neg 2L Drips: As per RN exam : Consultants: Hospital course: 61 y/o f with Covid PNA 4L o2 06/02 = Vapotherm 40L 100%, d dimer 3.2 - lovenox was increased to therapeutic dose 06/03- BIPAP 100% 06/04 - Bipap 80 5, diuresis 2400, CXR worsenig , PCT WNL , off ABX 06/04 - bipap 80% DIURESIS 2200 A/P Acute resp failure - covid PNA ( CTA 05/30 - no PE - Vapotherm , 06/02 to BIPAP, 12/04 rr14 - DECREASING SPONT RATE FROM 30s+ to 20s+ tv 350-500 MV ?15-20L- MORE RESP MUSCLES FATIGUE? - proning - poor compliance HIGH RISK FOR INTUBATION , MORE SOMNILENT TODAY - WILL CHECK ABG -lovenox proph dose ( dd mary 1.5 05/30; 06/02 3.2 - lovenox was increased to therapeutic dose - keep fluid balance even or negative - DIURESIS 2400 06/03 - improvef fio2 - continue TODAY , less agressive -PCT WNL , off ABX COVID PNA / possible bact PNA - decadron 05/31-> -Convalescent plasma given 05/31 -remdesivir - off abx , PCT 06/02 and 06/04 negative Lines : periph= CONSIDER PICC - ANTICIPATED LONG STAY AND MOST LIKELY INTUBATION IS COMING [place]: 06/03 OG: Nutrition: NOT TOLEARATE PO with BIPAP - ENSURE 1 can day - to try more Analgesia: Anxiety/ delirium na VTE Prophylaxis: lovenox full dose Stress Ulcer Prophylaxis: ppi Glycemic Control: + Plans in collaboration with bedside consultants and IM MDs. Discussed with RN to reach out if any questions or concerns A total of 36 minutes of critical care time was devoted to this patient today, required to treat and/or prevent further deterioration of critical care condition ( as above ) . YOSHI HILLS MD Jun 05, 2021 09:37
[2021-06-05] MEDS ORDERED: FUROSEMIDE 40 MG/4 ML INJ (LASIX) IVP ONE (09:45)
[2021-06-05 10:34] LABS: ABG BASE EXCESS 8.2 MMOL/L (-2.5-2.5); ABG OXYGEN SATURATION 94 % (94-100); ABG PCO2 43 MMHG (35-45); ABG PH 7.48 (7.37-7.43); ABG PO2 68 MMHG (79-93); ABG TCO2 33.7 MMOL/L (21.0-31.0); ALLENS TEST POSITIVE; INSPIRED O2 80% BIPAP; PATIENT TEMP 36; VENTILATOR NO
--- NOTE | 2021-06-05 14:57 | Progress Note - Hospitalist ---
Subjective HPI/CC On Admission Date Seen by Provider: Jun 05, 2021 Time Seen by Provider: 11:10 Pt is a 61yoCF with no known PMH who presented to the ER due to cough and shortness of breath. She states her symptoms started roughly 1 week ago and she thought it was just a sinus infection. As it progressed she became very tired and thought it settled in her chest. She was tested for COVID here and was positive. She was hypoxic requiring 4lpm NC to maintain saturations. She denies any loss of taste or smell. She did have diarrhea but that has resolved. She has nausea and poor oral intake. She has not been vaccinated. Subjective/Events-last exam She is feeling better. She is still on BiPAP. She is willing to try Vapotherm today. Objective Exam Vital Signs Vital Signs Date Time Temp Pulse Resp B/P (MAP) Pulse Ox O2 Delivery O2 Flow Rate FiO2 06/05/21 14:00 67 9 125/106 (112) 92 Vapotherm 40.00 100.00 06/05/21 12:32 100 06/05/21 11:38 36.2 Capillary Refill : Less Than 3 Seconds General Appearance: No Apparent Distress, Obese Respiratory: Lungs Clear, Normal Breath Sounds, No Respiratory Distress Cardiovascular: Regular Rate, Rhythm, No Edema, No Murmur Gastrointestinal: Normal Bowel Sounds, Non Tender, Soft Extremity: Normal Inspection, Non Tender, No Pedal Edema Neurologic/Psychiatric: Alert, Oriented x3, No Motor/Sensory Deficits, Normal Mood/Affect Skin: Normal Color, Warm/Dry Results/Procedures Lab Laboratory Tests 06/05/21 03:25 06/05/21 03:45 Patient resulted labs reviewed. Imaging: Reviewed Imaging Report Assessment/Plan Assessment and Plan Assess & Plan/Chief Complaint Acute respiratory failure due to COVID-19 Pneumonia due to COVID-19 Hypercoagulable state associated with COVID-19 Currently on BiPAP, attempt to transition to Vapotherm TeleICU consulted, appreciate assistance Procal negative, antibiotics not indicated Decadron s/p remdesivir s/p convalescent plasma IS, MAT protocol Prone as able Therapeutic Lovenox Obesity Clinically significant, no acute management needs DVT ppx: Already receiving therapeutic anticoagulation Critical Care Critically Ill Patient Diagnosis/Problems Diagnosis/Problems (1) Acute respiratory failure due to COVID-19 Status: Acute (2) Pneumonia due to COVID-19 virus Status: Acute (3) Hypercoagulable state associated with COVID-19 Status: Acute (4) Obesity Status: Chronic LUIS M FORBES MD Jun 05, 2021 14:57
[2021-06-05] MEDS: ENOXAPARIN 100 MG/1 ML (LOVENOX) SYR SC SCH (16:30)
[2021-06-06] VITALS (23 sets, daily range): BP systolic 100–129; BP diastolic 48–70
[2021-06-06] MEDS: ENOXAPARIN 100 MG/1 ML (LOVENOX) SYR SC SCH ×3 (00:17→23:30)
[2021-06-06] MEDS: CATHETER FLUSH 10 ML SYR IV SCH ×4 (00:17→22:00)
[2021-06-06] MEDS: RT-ALBUTEROL INHALER HFA (VENTOLIN HFA) 18 GM IH SCH ×6 (02:25→21:03)
[2021-06-06 03:43] LABS: BASOPHILS % (AUTO) 0 % (0-10); EOSINOPHILS # (AUTO) 0.3 10^3/uL (0.0-0.3); EOSINOPHILS % (AUTO) 3 % (0-10); HEMATOCRIT 36 % (35-52); HEMOGLOBIN 12.1 g/dL (11.5-16.0); LYMPHOCYTES # (AUTO) 0.8 10^3/uL (1.0-4.0); LYMPHOCYTES % (AUTO) 9 % (12-44); MEAN CORPUSCULAR HEMOGLOBIN 31 pg (25-34); MEAN CORPUSCULAR HGB CONC 34 g/dL (32-36); MEAN CORPUSCULAR VOLUME 93 fL (80-99); MEAN PLATELET VOLUME 9.9 fL (9.0-12.2); MONOCYTES # (AUTO) 0.6 10^3/uL (0.0-1.0); MONOCYTES % (AUTO) 7 % (0-12); NEUTROPHILS # (AUTO) 6.8 10^3/uL (1.8-7.8); NEUTROPHILS % (AUTO) 80 % (42-75); PLATELET COUNT 273 10^3/uL (130-400); WHITE BLOOD COUNT 8.5 10^3/uL (4.3-11.0)
[2021-06-06 03:58] LABS: CHLORIDE 99 MMOL/L (98-107); POTASSIUM 3.6 MMOL/L (3.6-5.0); SODIUM 141 MMOL/L (135-145)
[2021-06-06 03:59] LABS: CALCIUM 8.3 MG/DL (8.5-10.1)
[2021-06-06 04:00] LABS: GLUCOSE 100 MG/DL (70-105)
[2021-06-06 04:02] LABS: CARBON DIOXIDE 29 MMOL/L (21-32)
[2021-06-06 04:04] LABS: CREATININE SERUM 0.74 MG/DL (0.60-1.30); GFR ESTIMATED > 60; PHOSPHORUS 3.9 MG/DL (2.3-4.7)
[2021-06-06 04:05] LABS: BUN/CREATININE RATIO 35
[2021-06-06 04:06] LABS: MAGNESIUM 2.5 MG/DL (1.6-2.4)
[2021-06-06] MEDS: POTASSIUM CL 10MEQ/50ML IVPB 50 ML IV SCH (04:58)
[2021-06-06] MEDS: KCL 20 MEQ TAB (K-DUR) PO SCH (04:58)
[2021-06-06] MEDS: MAGNESIUM 1 GM/100 ML IVPB 100 ML IV SCH (04:58)
--- NOTE | 2021-06-06 05:18 | Diagnostic Imaging Report ---
INDICATION: Hypoxia, Covid positive COMPARISON: 06/04/2021 TECHNIQUE: Single radiograph of the chest dated 06/06/2021 FINDINGS: The cardiac silhouette is stable. Pulmonary vasculature is predominantly obscured. Extensive bilateral pulmonary infiltrates are again identified, greatest within the periphery of the lungs. These infiltrates appear very minimally improved since the prior examination. No significant pleural effusion. No pneumothorax. No acute osseous abnormality. IMPRESSION: Very minimal improvement of extensive bilateral pulmonary infiltrates. Dictated by: Dictated on workstation # [id number]
[2021-06-06] MEDS: PANTOPRAZOLE 40 MG (PROTONIX) TAB PO SCH (07:51)
[2021-06-06] MEDS: dexAMETHasone 6 MG TAB (DECADRON) PO SCH (07:51)
[2021-06-06] MEDS ORDERED: KCL 20 MEQ TAB (K-DUR) PO ONE (08:00)
--- NOTE | 2021-06-06 09:27 | Tele-ICU Progress Note ---
Subjective Date Seen by a Provider: Jun 06, 2021 Time Seen by a Provider: 09:15 Subjective/Events-last exam Rounded virtually with WALDO Jonas: JOSTINS. back on vapotherm. 40L/95%. P: monitor resp status.. Sepsis Event Evaluation Sepsis Stage: Sepsis Possible Source: Pulmonary Height, Weight, BMI Height: 5'6.00" Weight: 175lbs. oz. 79.613711jb; 30.71 BMI Method:Stated Bedside Monitoring CVP Measures: 8-12 ScvO2 measures: Greater than 70% Bedside Ultrasound Performed: No Passive Leg Raise/Fluid Bolus: Not Fluid Responsive Exam Exam Patient acknowledged, consented, and participated in this virtual visit which was conducted using real time audio/video Vital Signs Date Time Temp Pulse Resp B/P (MAP) Pulse Ox O2 Delivery O2 Flow Rate FiO2 06/06/21 08:11 94 Vapotherm 40.00 95 06/06/21 08:00 36.0 Vapotherm 40.00 95.00 06/06/21 08:00 68 24 123/65 (84) 95 Vapotherm 40.00 95.00 06/06/21 07:09 95 Vapotherm 40.00 95 06/06/21 07:00 59 18 109/57 (74) 97 Vapotherm 40.00 100.00 06/06/21 07:00 61 06/06/21 06:00 54 17 116/61 (79) 97 Vapotherm 40.00 100.00 06/06/21 05:00 64 15 97 Vapotherm 40.00 100.00 06/06/21 04:00 64 21 129/64 (85) 97 Vapotherm 40.00 100.00 06/06/21 04:00 92 Vapotherm 40.00 100 06/06/21 03:00 62 19 114/63 (80) 96 Vapotherm 40.00 100.00 06/06/21 02:26 91 Vapotherm 40.00 100 06/06/21 02:00 60 19 110/67 (81) 92 Vapotherm 40.00 100.00 06/06/21 01:00 58 24 119/62 (81) 96 Vapotherm 40.00 100.00 06/06/21 01:00 62 06/06/21 00:00 89 Vapotherm 40.00 100 06/06/21 00:00 73 16 119/68 (85) 92 Vapotherm 40.00 100.00 06/05/21 23:00 77 16 118/66 (83) 96 Vapotherm 40.00 100.00 06/05/21 22:20 90 Vapotherm 40.00 100 06/05/21 22:00 60 19 111/60 (77) 95 Vapotherm 40.00 100.00 06/05/21 21:00 67 28 135/56 (82) 95 Vapotherm 40.00 100.00 06/05/21 20:00 67 25 136/69 (91) 91 Vapotherm 40.00 100.00 06/05/21 20:00 94 Vapotherm 35.00 100 06/05/21 19:00 65 06/05/21 19:00 66 24 135/73 (93) 97 Vapotherm 40.00 100.00 06/05/21 18:28 90 Vapotherm 35.00 100 06/05/21 18:00 69 14 125/72 (89) 94 Vapotherm 40.00 100.00 06/05/21 17:00 68 24 118/73 (88) 94 Vapotherm 40.00 100.00 06/05/21 16:34 95 Vapotherm 35.00 100 06/05/21 16:14 35.9 06/05/21 16:00 63 26 120/73 (89) 91 Vapotherm 40.00 100.00 06/05/21 15:22 93 Vapotherm 35.00 100 06/05/21 15:00 77 12 117/69 (85) 96 Vapotherm 40.00 100.00 06/05/21 14:00 67 9 125/106 (112) 92 Vapotherm 40.00 100.00 06/05/21 13:00 68 11 114/72 (86) 95 Vapotherm 40.00 100.00 06/05/21 12:41 70 06/05/21 12:32 93 Vapotherm 40.00 100 06/05/21 12:00 72 7 110/62 (78) 95 Vapotherm 40.00 100.00 06/05/21 11:50 Vapotherm 40.00 100.00 06/05/21 11:38 36.2 06/05/21 11:00 75 26 104/51 (68) 94 NIV Bilevel 80.00 06/05/21 10:22 36.0 NIV Bilevel 80.00 06/05/21 10:15 70 27 95 80.00 06/05/21 10:00 61 26 123/69 (87) 95 NIV Bilevel 80.00 I & O 06/06/21 07:00 Intake Total 850 ml Output Total 1500 ml Balance -650 ml Height & Weight Height: 5'6.00" Weight: 175lbs. oz. 79.599409od; 30.71 BMI Method:Stated General Appearance: No Apparent Distress, Obese HEENT: PERRL/EOMI, Moist Mucous Membranes; No Scleral Icterus (L), No Scleral Icterus (R) Neck: Normal Inspection, Supple Respiratory: Lungs Clear, Normal Breath Sounds, No Respiratory Distress Cardiovascular: Regular Rate, Rhythm, No Edema, No Murmur Capillary Refill: Less Than 3 Seconds Gastrointestinal: normal bowel sounds, non tender, soft Extremity: Normal Inspection, Non Tender, No Pedal Edema Neurologic/Psychiatric: Alert, Oriented x3, No Motor/Sensory Deficits, Normal Mood/Affect Skin: Normal Color, Warm/Dry Results Lab Laboratory Tests 06/05/21 03:25 06/05/21 03:45 06/06/21 03:20 Assessment/Plan Assessment/Plan Rounded virtually with WALDO Jonas: VSS. back on vapotherm. 40L/95%. P: monitor resp status. WILFRED ABRAMS MD Jun 06, 2021 09:27
--- NOTE | 2021-06-06 15:28 | Progress Note - Hospitalist ---
Subjective HPI/CC On Admission Date Seen by Provider: Jun 06, 2021 Time Seen by Provider: 09:20 Pt is a 61yoCF with no known PMH who presented to the ER due to cough and shortness of breath. She states her symptoms started roughly 1 week ago and she thought it was just a sinus infection. As it progressed she became very tired and thought it settled in her chest. She was tested for COVID here and was positive. She was hypoxic requiring 4lpm NC to maintain saturations. She denies any loss of taste or smell. She did have diarrhea but that has resolved. She has nausea and poor oral intake. She has not been vaccinated. Subjective/Events-last exam She is feeling a little bit better today. She is happy to be off the BiPAP. We discussed possible transfer to LTAC and she was agreeable. Objective Exam Vital Signs Vital Signs Date Time Temp Pulse Resp B/P (MAP) Pulse Ox O2 Delivery O2 Flow Rate FiO2 06/06/21 14:29 Vapotherm 30.00 90.00 06/06/21 14:14 92 90 06/06/21 14:00 71 18 106/51 (69) 06/06/21 08:00 36.0 Capillary Refill : Less Than 3 Seconds General Appearance: No Apparent Distress, Obese Respiratory: No Respiratory Distress, Decreased Breath Sounds Cardiovascular: Regular Rate, Rhythm, No Edema, No Murmur Gastrointestinal: Normal Bowel Sounds, Non Tender, Soft Extremity: Normal Inspection, Non Tender, No Pedal Edema Neurologic/Psychiatric: Alert, Oriented x3, No Motor/Sensory Deficits, Normal Mood/Affect Skin: Normal Color, Warm/Dry Results/Procedures Lab Laboratory Tests 06/06/21 03:20 Patient resulted labs reviewed. Imaging: Reviewed Imaging Report Assessment/Plan Assessment and Plan Assess & Plan/Chief Complaint Acute respiratory failure due to COVID-19 Pneumonia due to COVID-19 Hypercoagulable state associated with COVID-19 Currently on Vapotherm, slightly improved TeleICU consulted, appreciate assistance Procal negative, antibiotics not indicated Decadron s/p remdesivir s/p convalescent plasma IS, MAT protocol Prone as able Therapeutic Lovenox LTAC evaluation Obesity Clinically significant, no acute management needs DVT ppx: Already receiving therapeutic anticoagulation Critical Care Critically Ill Patient Diagnosis/Problems Diagnosis/Problems (1) Acute respiratory failure due to COVID-19 Status: Acute (2) Pneumonia due to COVID-19 virus Status: Acute (3) Hypercoagulable state associated with COVID-19 Status: Acute (4) Obesity Status: Chronic LUIS M FORBES MD Jun 06, 2021 15:28
[2021-06-07] VITALS (21 sets, daily range): BP systolic 98–135; BP diastolic 53–76
[2021-06-07] MEDS: RT-ALBUTEROL INHALER HFA (VENTOLIN HFA) 18 GM IH SCH ×6 (02:59→22:01)
[2021-06-07 04:36] LABS: BASOPHILS % (AUTO) 0 % (0-10); EOSINOPHILS # (AUTO) 0.3 10^3/uL (0.0-0.3); EOSINOPHILS % (AUTO) 4 % (0-10); HEMATOCRIT 36 % (35-52); HEMOGLOBIN 11.8 g/dL (11.5-16.0); LYMPHOCYTES # (AUTO) 0.9 10^3/uL (1.0-4.0); LYMPHOCYTES % (AUTO) 13 % (12-44); MEAN CORPUSCULAR HEMOGLOBIN 31 pg (25-34); MEAN CORPUSCULAR HGB CONC 33 g/dL (32-36); MEAN CORPUSCULAR VOLUME 94 fL (80-99); MEAN PLATELET VOLUME 10.1 fL (9.0-12.2); MONOCYTES # (AUTO) 0.6 10^3/uL (0.0-1.0); MONOCYTES % (AUTO) 8 % (0-12); NEUTROPHILS # (AUTO) 5.4 10^3/uL (1.8-7.8); NEUTROPHILS % (AUTO) 74 % (42-75); PLATELET COUNT 248 10^3/uL (130-400); WHITE BLOOD COUNT 7.2 10^3/uL (4.3-11.0)
[2021-06-07 04:41] LABS: CHLORIDE 101 MMOL/L (98-107); POTASSIUM 3.9 MMOL/L (3.6-5.0); SODIUM 141 MMOL/L (135-145)
[2021-06-07 04:42] LABS: CALCIUM 8.1 MG/DL (8.5-10.1)
[2021-06-07 04:43] LABS: GLUCOSE 97 MG/DL (70-105)
[2021-06-07 04:44] LABS: CARBON DIOXIDE 29 MMOL/L (21-32)
[2021-06-07 04:46] LABS: PHOSPHORUS 3.3 MG/DL (2.3-4.7)
[2021-06-07 04:47] LABS: CREATININE SERUM 0.75 MG/DL (0.60-1.30); GFR ESTIMATED > 60
[2021-06-07 04:48] LABS: BUN/CREATININE RATIO 24
[2021-06-07 04:49] LABS: MAGNESIUM 2.5 MG/DL (1.6-2.4)
[2021-06-07] MEDS: MAGNESIUM 1 GM/100 ML IVPB 100 ML IV SCH (05:57)
[2021-06-07] MEDS: POTASSIUM CL 10MEQ/50ML IVPB 50 ML IV SCH (05:57)
[2021-06-07] MEDS: KCL 20 MEQ TAB (K-DUR) PO SCH (05:57)
[2021-06-07] MEDS: CATHETER FLUSH 10 ML SYR IV SCH ×2 (06:09→14:45)
[2021-06-07] MEDS: PANTOPRAZOLE 40 MG (PROTONIX) TAB PO SCH (07:42)
[2021-06-07] MEDS: dexAMETHasone 6 MG TAB (DECADRON) PO SCH (07:42)
[2021-06-07] MEDS: ACETAMINOPHEN 325 MG TABLET PO PRN (07:44)
--- NOTE | 2021-06-07 09:09 | Tele-ICU Progress Note ---
Subjective Date Seen by a Provider: Jun 07, 2021 Time Seen by a Provider: 09:04 Subjective/Events-last exam Patient remained on Vapotherm for her hypoxic respiratory failure due to Covid pneumonia. She is currently on 40 L of oxygen with 75% FiO2 and saturating at 94%. Heart rate is 63/min. I have made a video visit and discussed with the patient as well as the bedside RN Regina. Patient denies any shortness of georgina th with her current oxygen. No cough or wheezing present. No abdominal pain or diarrhea. No rash present. Review of Systems General: Other (per attending physician) Sepsis Event Evaluation Height, Weight, BMI Height: 5'6.00" Weight: 175lbs. oz. [id number]; 30.71 BMI Method:Stated Exam Exam Patient acknowledged, consented, and participated in this virtual visit which was conducted using real time audio/video Vital Signs Date Time Temp Pulse Resp B/P (MAP) Pulse Ox O2 Delivery O2 Flow Rate FiO2 06/07/21 08:30 35.2 06/07/21 08:00 66 13 123/62 (82) 92 Vapotherm 30.00 75.00 06/07/21 07:00 66 06/07/21 07:00 64 20 110/57 (74) 96 Vapotherm 30.00 75.00 06/07/21 06:35 94 Vapotherm 30.00 75 06/07/21 06:00 72 23 122/66 (84) 92 Vapotherm 30.00 75.00 06/07/21 05:00 59 24 135/76 (95) 95 Vapotherm 30.00 75.00 06/07/21 04:00 54 16 117/65 (82) 95 Vapotherm 30.00 75.00 06/07/21 04:00 94 Vapotherm 40.00 75 06/07/21 03:06 Vapotherm 30.00 75.00 06/07/21 03:00 50 17 107/59 (75) 95 Vapotherm 30.00 85.00 06/07/21 02:59 95 Vapotherm 30.00 80 06/07/21 02:00 56 18 98/53 (68) 95 Vapotherm 30.00 85.00 06/07/21 01:00 60 06/07/21 01:00 53 16 99/57 (71) 95 Vapotherm 30.00 85.00 06/07/21 00:00 96 Vapotherm 40.00 80 06/07/21 00:00 57 18 109/63 (78) 95 Vapotherm 30.00 85.00 06/06/21 23:00 59 19 109/61 (77) 96 Vapotherm 30.00 85.00 06/06/21 22:00 60 17 103/62 (76) 96 Vapotherm 30.00 85.00 06/06/21 21:03 95 Vapotherm 30.00 85 06/06/21 21:00 65 24 107/58 (74) 94 Vapotherm 30.00 85.00 06/06/21 20:00 69 28 100/48 (65) 94 Vapotherm 30.00 85.00 06/06/21 20:00 96 Vapotherm 40.00 80 06/06/21 19:07 Vapotherm 30.00 85.00 06/06/21 19:00 95 Vapotherm 30.00 90 06/06/21 19:00 73 23 112/58 (76) 95 Vapotherm 30.00 90.00 06/06/21 19:00 80 06/06/21 18:00 63 9 116/64 (81) 95 Vapotherm 30.00 90.00 06/06/21 17:00 65 29 117/64 (81) 96 Vapotherm 30.00 90.00 06/06/21 16:30 96 Vapotherm 40.00 95 06/06/21 16:00 65 17 111/65 (80) 96 Vapotherm 30.00 90.00 06/06/21 15:00 69 25 119/69 (86) 93 Vapotherm 30.00 90.00 06/06/21 14:29 Vapotherm 30.00 90.00 06/06/21 14:14 92 Vapotherm 30.00 90 06/06/21 14:00 71 18 106/51 (69) 93 Vapotherm 40.00 95.00 06/06/21 13:00 75 15 116/70 (85) 96 Vapotherm 40.00 95.00 06/06/21 12:50 70 06/06/21 12:30 95 Vapotherm 40.00 95 06/06/21 12:00 66 16 117/68 (84) 95 Vapotherm 40.00 95.00 06/06/21 11:00 76 12 123/58 (79) 92 Vapotherm 40.00 95.00 06/06/21 10:54 93 Vapotherm 35.00 90 06/06/21 10:00 59 17 128/69 (88) 99 Vapotherm 40.00 95.00 I & O 06/07/21 07:00 Intake Total 1290 ml Output Total 1055 ml Balance 235 ml Height & Weight Height: 5'6.00" Weight: 175lbs. oz. 79.322715gy; 30.71 BMI Method:Stated General Appearance: No Apparent Distress, Obese, Other (per attending physician) HEENT: PERRL/EOMI, Moist Mucous Membranes; No Scleral Icterus (L), No Scleral Icterus (R) Neck: Normal Inspection, Supple Respiratory: No Respiratory Distress, Decreased Breath Sounds Cardiovascular: Regular Rate, Rhythm, No Edema, No Murmur Capillary Refill: Less Than 3 Seconds Gastrointestinal: normal bowel sounds, non tender, soft Extremity: Normal Inspection, Non Tender, No Pedal Edema Neurologic/Psychiatric: Alert, Oriented x3, No Motor/Sensory Deficits, Normal Mood/Affect Skin: Normal Color, Warm/Dry Results Lab Laboratory Tests 06/06/21 03:20 06/07/21 04:15 Meds reviewed Radiology cxr reviewed Assessment/Plan Assessment/Plan 1. Covid pneumonia 2. Acute hypoxic respiratory failure 3. Mild obesity. Recommendations 1. Continue Vapotherm and wean FiO2 as tolerated 2. Continue Decadron 3. DVT prophylaxis and ulcer prophylaxis. 4. Discussed with the patient and the RN. Critical Care: Critically Ill Patient Time spent with patient (mins): 35 CRISSY MARIE MD Jun 07, 2021 09:09
[2021-06-07] MEDS: ENOXAPARIN 100 MG/1 ML (LOVENOX) SYR SC SCH (11:05)
--- NOTE | 2021-06-07 14:08 | Progress Note - Hospitalist ---
Subjective HPI/CC On Admission Date Seen by Provider: Jun 07, 2021 Time Seen by Provider: 09:40 Pt is a 61yoCF with no known PMH who presented to the ER due to cough and shortness of breath. She states her symptoms started roughly 1 week ago and she thought it was just a sinus infection. As it progressed she became very tired and thought it settled in her chest. She was tested for COVID here and was positive. She was hypoxic requiring 4lpm NC to maintain saturations. She denies any loss of taste or smell. She did have diarrhea but that has resolved. She has nausea and poor oral intake. She has not been vaccinated. Subjective/Events-last exam She needs to feel better. She is not feeling short of breath. Her cough is improving. She has no other complaints or concerns. Objective Exam Vital Signs Vital Signs Date Time Temp Pulse Resp B/P (MAP) Pulse Ox O2 Delivery O2 Flow Rate FiO2 06/07/21 12:34 70 06/07/21 12:00 20 111/59 (76) 91 Vapotherm 30.00 70.00 06/07/21 11:53 70 06/07/21 11:18 35.7 Capillary Refill : Less Than 3 Seconds General Appearance: No Apparent Distress, WD/WN Respiratory: Lungs Clear, Normal Breath Sounds, No Respiratory Distress Cardiovascular: Regular Rate, Rhythm, No Edema, No Murmur Gastrointestinal: Normal Bowel Sounds, Non Tender, Soft Extremity: Normal Inspection, Non Tender, No Pedal Edema Neurologic/Psychiatric: Alert, Oriented x3, No Motor/Sensory Deficits, Normal Mood/Affect Skin: Normal Color, Warm/Dry Results/Procedures Lab Laboratory Tests 06/07/21 04:15 Patient resulted labs reviewed. Imaging: Reviewed Imaging Report Assessment/Plan Assessment and Plan Assess & Plan/Chief Complaint Acute respiratory failure due to COVID-19 Pneumonia due to COVID-19 Hypercoagulable state associated with COVID-19 Remains on Vapotherm, improving TeleICU consulted, appreciate assistance Procal negative, antibiotics not indicated Decadron day 9/ s/p remdesivir s/p convalescent plasma IS, MAT protocol Prone as able Therapeutic Lovenox LTAC evaluation Obesity Clinically significant, no acute management needs DVT ppx: Already receiving therapeutic anticoagulation Critical Care Critically Ill Patient Diagnosis/Problems Diagnosis/Problems (1) Acute respiratory failure due to COVID-19 Status: Acute (2) Pneumonia due to COVID-19 virus Status: Acute (3) Hypercoagulable state associated with COVID-19 Status: Acute (4) Obesity Status: Chronic LUIS M FORBES MD Jun 07, 2021 14:08
--- NOTE | 2021-06-07 14:25 | Discharge Summary ---
Discharge Summary Hospital Course Was the Problem List Reviewed?: Yes Problems/Dx: (1) Acute respiratory failure due to COVID-19 Status: Acute (2) Pneumonia due to COVID-19 virus Status: Acute (3) Hypercoagulable state associated with COVID-19 Status: Acute (4) Obesity Status: Chronic Hospital Course Date of Admission: May 30, 2021 at 13:07 Admission Diagnosis : Acute respiratory failure due to COVID-19 Family Physician/Provider: No,Local Physician Date of Discharge: 06/07/21 Discharge Diagnosis: Acute respiratory failure due to COVID-19 Hospital Course: Ainsley Maxwell is a 61-year-old female who was admitted with acute respiratory failure due to COVID-19. She was started on Decadron, remdesivir and given convalescent plasma. Her oxygen requirements increased and she was requiring maximal support with Vapotherm and BiPAP. She did not reach the point of requiring intubation. Her oxygen requirements began to improve prior to discharge. She was transferred to [facility] for ongoing cares. Her course was complicated by elevated D-dimer and she was treated with therapeu tic Lovenox. Labs and Pending Lab Test: Laboratory Tests 06/07/21 04:15: White Blood Count 7.2, Red Blood Count 3.85, Hemoglobin 11.8, Hematocrit 36, Mean Corpuscular Volume 94, Mean Corpuscular Hemoglobin 31, Mean Corpuscular Hemoglobin Concent 33, Red Cell Distribution Width 12.2, Platelet Count 248, Mean Platelet Volume 10.1, Immature Granulocyte % (Auto) 1, Neutrophils (%) (Auto) 74, Lymphocytes (%) (Auto) 13, Monocytes (%) (Auto) 8, Eosinophils (%) (Auto) 4, Basophils (%) (Auto) 0, Neutrophils # (Auto) 5.4, Lymphocytes # (Auto) 0.9L, Monocytes # (Auto) 0.6, Eosinophils # (Auto) 0.3, Basophils # (Auto) 0.0, Immature Granulocyte # (Auto) 0.1, Sodium Level 141, Potassium Level 3.9, Chloride Level 101, Carbon Dioxide Level 29, Anion Gap 11, Blood Urea Nitrogen 18, Creatinine 0.75, Estimat Glomerular Filtration Rate > 60, BUN/Creatinine Ratio 24, Glucose Level 97, Calcium Level 8.1L, Phosphorus Level 3.3, Magnesium Level 2.5H Home Meds Active No Active Prescriptions or Reported Medications Assessment/Pt Instructions Transferred to [facility] for ongoing cares Discharge Planning: >30 minutes discharge planning Discharge Instructions Discharge Diet: No Restrictions Activity as Tolerated: Yes Discharge Physical Examination Vital Signs Vital Signs Date Time Temp Pulse Resp B/P (MAP) Pulse Ox O2 Delivery O2 Flow Rate FiO2 06/07/21 12:34 70 06/07/21 12:00 20 111/59 (76) 91 Vapotherm 30.00 70.00 06/07/21 11:53 70 06/07/21 11:18 35.7 Allergies: Coded Allergies: No Known Drug Allergies (Unverified , 03/30/17) Discharge Summary Date of Admission May 30, 2021 at 13:07 Date of Discharge Discharge Date: Jun 07, 2021 Discharge Time: 14:25 Admission Diagnosis Acute hypoxic respiratory failure due to COVID19 Comfort Measures/ End of Life Care: Comfort Measures Time spent on discussion (min): 15 Discharge Diagnosis Acute respiratory failure due to COVID-19 Pneumonia due to COVID-19 Hypercoagulable state associated with COVID-19 (1) Acute respiratory failure due to COVID-19 Status: Acute (2) Pneumonia due to COVID-19 virus Status: Acute (3) Hypercoagulable state associated with COVID-19 Status: Acute (4) Obesity Status: Chronic LUIS M FORBES MD Jun 07, 2021 14:25
== END 2021-06-07 21:13 | DRG 177 ==
LOC: EDUNIT# 10:34 → ER 10:38 → 4TH 13:07 → ICU 05-31 09:43
PROVIDERS: ADMIT Family Medicine; ATTEND Internal Medicine
PROC: XW033E5 Introduction of Remdesivir Anti-infective into Peripheral Vein, Percutaneous Approach, New Technology Group 5 (ICD-10-PCS; principal; 2021-05-30)
PROC: XW13325 Transfusion of Convalescent Plasma (Nonautologous) into Peripheral Vein, Percutaneous Approach, New Technology Group 5 (ICD-10-PCS; 2021-06-03)
PROC: 5A09457 Assistance with Respiratory Ventilation, 24-96 Consecutive Hours, Continuous Positive Airway Pressure (ICD-10-PCS; 2021-06-03)
DX: U07.1 COVID-19 (principal); J96.01 Acute respiratory failure with hypoxia; J12.82 Pneumonia due to coronavirus disease 2019; J15.9 Unspecified bacterial pneumonia; D68.59 Other primary thrombophilia; E66.9 Obesity, unspecified; F41.9 Anxiety disorder, unspecified; Z68.29 Body mass index [BMI] 29.0-29.9, adult
CPT/HCPCS: 36410; 36415; 71045; 71275; 76937; 80048; 80053; 82805; 83735; 83880; 84100; 84145; 85007; 85025; 85027; 85379; 86141; 86900; 86901; 87636; 90471; 94640; 94660; 94760; 96374; 96375